=== PATIENT | female | born 1960 ===

== ENCOUNTER 2017-06-09 21:44 | Emergency (ER) | payer MEDICARE, OTHER ==
[2017-06-09 21:44] VITALS: BMI 27.9
[2017-06-09 21:55] VITALS: BP 111/75; PULSE 69; RESP 16; TEMP 98.4; O2SAT 97
--- NOTE | 2017-06-09 21:57 | ED PDOC ---
Upper Extremity Pain/Injury Time Seen by Provider: 06/09/17 21:56 Chief Complaint (Nursing): Upper Extremity Problem/Injury Chief Complaint (Provider): right shoulder pain History Per: Patient, Family (Patient's daughter at bedside is translating for patient) Additional Complaint(s): 56-year-old right-hand dominant female presents with pain to right shoulder status post cleaning at home and feeling a muscle strain to right shoulder region. Patient states that this injury occurred last night. She took ibuprofen yesterday and today which helped only slightly with pain. Patient denies radiation of pain. No associated chest pain, shortness of breath or dyspnea on exertion. Past Medical History Reviewed: Historical Data, Nursing Documentation, Vital Signs Vital Signs: Last Vital Signs Temp 98.4 F 06/09/17 21:52 Pulse 69 06/09/17 21:52 Resp 16 06/09/17 21:52 BP 111/75 06/09/17 21:52 Pulse Ox 97 06/09/17 21:52 - Medical History PMH: Anxiety, Arthritis, Asthma (MILD), Depression, Fibromyalgia, Migraine, Osteoporosis (OSTEOPENIA) - Surgical History Surgical History: (x 3) Other surgeries: hysterectomy - Family History Family History: States: No Known Family Hx - Living Arrangements Living Arrangements: With Family - Social History Current smoker - smoking cessation education provided: No Alcohol: None Drugs: Denies - Home Medications Home Medications: Ambulatory Orders Medication Instructions Recorded Alprazolam [Xanax] 1 tab PO BID 06/02/14 Diclofenac Sodium [Voltaren Gel] 1 .8 TP TID PRN 06/02/14 Donepezil Hydrochloride 10 mg PO DAILY 06/02/14 Escitalopram [Lexapro] 20 mg PO HS 06/02/14 Furosemide 20 mg PO DAILY 06/02/14 Gabapentin 100 mg PO DAILY 06/02/14 Ibuprofen 800 mg PO BID PRN 06/02/14 Inhaler 2 puff INH BID PRN 06/02/14 Omeprazole 40 mg PO DAILY 06/02/14 Risedronate Sodium 150 mg PO ONCE 06/02/14 Tobramycin/Dexamethasone [Tobradex 2.5 ml OP HS 06/02/14 0.1%-0.3% 2.5 ml] Ibuprofen [Motrin Tab] 800 mg PO Q4 PRN 07/27/15 Cyclobenzaprine [Cyclobenzaprine 10 mg PO TID PRN #20 tab 06/09/17 HCl] Naproxen [Naprosyn] 500 mg PO BID #20 tab 06/09/17 - Allergies Allergies/Adverse Reactions: Allergies Allergy/AdvReac Type Severity Reaction Status Date / Time acetaminophen [From Percocet] Allergy VOMITING Verified 06/09/17 21:52 oxycodone HCl [From Percocet] Allergy VOMITING Verified 06/09/17 21:52 Review of Systems ROS Statement: Except As Marked, All Systems Reviewed And Found Negative Musculoskeletal: Positive for: Other (Right shoulder pain) Physical Exam - Reviewed Nursing Documentation Reviewed: Yes Vital Signs Reviewed: Yes - Physical Exam Appears: Positive for: Well, Non-toxic, No Acute Distress Skin: Negative for: Rash Eye Exam: Positive for: Normal appearance Neck: Positive for: Normal, Painless ROM Cardiovascular/Chest: Positive for: Regular Rate, Rhythm Respiratory: Positive for: Normal Breath Sounds Extremity: Positive for: Other (Diffuse tenderness to anterior aspect of right shoulder, decreased range of motion him a strong right handgrip, normal distal sensation right upper extremity) Neurologic/Psych: Positive for: Alert, Oriented - ECG O2 Sat by Pulse Oximetry: 97 Pulse Ox Interpretation: Normal - Other Rad right shoulder x-ray X-Ray: Interpreted by Me, Viewed By Me X-Ray Interpretation: no fx, no dis Medical Decision Making Medical Decision Makin56 year old with right shoulder pain Plan: Right shoulder x-ray IM toradol PO tylenol and flexeril Patient is aware of x-ray results, all questions answered. Patient states she feels better after pain meds given in ED. Prescriptions given for Naprosyn and Flexeril. Patient was referred to orthopedist reclamation supervisor for follow up. Disposition - Clinical Impression Clinical Impression: Shoulder sprain - Patient ED Disposition Is Patient to be Admitted: No Counseled Patient/Family Regarding: Studies Performed, Diagnosis, Need For Followup, Rx Given - Disposition Referrals: Kal Warner MD [Staff Provider] - Disposition: Routine/Home Disposition Time: 22:54 Condition: STABLE Additional Instructions: Take prescription medicines as directed. Rest and avoid heavy lifting. Ice affected area. Follow-up in 2-3 days with orthopedist for any persistent symptoms. Prescriptions: Cyclobenzaprine [Cyclobenzaprine HCl] 10 mg PO TID PRN #20 tab PRN Reason: Muscle Spasm Naproxen [Naprosyn] 500 mg PO BID #20 tab Instructions: Shoulder Sprain (DC) Forms: [employer] (Romanian), [facility] ED School/Work Excuse
--- NOTE | 2017-06-10 11:39 | RAD ---
PROCEDURE: Radiographs of the Right Shoulder HISTORY: trauma COMPARISON: No prior. FINDINGS: BONES: Normal. No fracture. JOINTS: Normal. Glenohumeral and acromioclavicular joints preserved. No osteoarthritis. SOFT TISSUES: Normal. OTHER FINDINGS: None. IMPRESSION: Normal radiographs of the right shoulder.
== END 2017-06-09 23:18 | disposition home or self-care (01) ==
LOC: H.ER 21:44
DX: S43.401A Unspecified sprain of right shoulder joint, initial encounter (principal); X50.9XXA Other and unspecified overexertion or strenuous movements or postures, initial encounter; Y92.89 Other specified places as the place of occurrence of the external cause; Z88.5 Allergy status to narcotic agent; Z90.710 Acquired absence of both cervix and uterus; M79.7 Fibromyalgia
CPT/HCPCS: 73030; 96372; 99283; J1885

== ENCOUNTER 2017-08-03 15:55 | Emergency (ER) | payer MEDICARE, OTHER ==
[2017-08-03 15:55] VITALS: BMI 27.9
--- NOTE | 2017-08-03 16:38 | ED PDOC ---
HPI: Back Time Seen by Provider: 08/03/17 16:18 Chief Complaint (Nursing): Back Pain Chief Complaint (Provider): back pain, neck pain, joint pain History Per: Patient History/Exam Limitations: no limitations Current Symptoms Are (Timing): Still Present Additional Complaint(s): 56 y/o female with history of chronic neck pain, back pain and arthritis presents with exacerbation of pain 3 days. Patient denies fall or trauma. She takes Mobic 7.5 mg tablets twice a day as well as gabapentin but this is not providing adequate pain relief. Patient was unable to see her PMD today so she came to ED for further evaluation. PCP: Edmund Ortiz Past Medical History Reviewed: Historical Data, Nursing Documentation, Vital Signs Vital Signs: Last Vital Signs Temp 98.9 F 08/03/17 16:06 Pulse 81 08/03/17 16:06 Resp 16 08/03/17 16:06 BP 126/74 08/03/17 16:06 Pulse Ox 98 08/03/17 16:06 - Medical History PMH: Anxiety, Arthritis, Asthma, Depression, Fibromyalgia, Migraine, Osteoporosis (OSTEOPENIA) - Surgical History Surgical History: (x 3) Other surgeries: removal of mass from left shoulder, cataracts, cyst removal from left breast, hysterectomy - Family History Family History: States: No Known Family Hx - Living Arrangements Living Arrangements: With Family - Social History Current smoker - smoking cessation education provided: No Alcohol: None Drugs: Denies - Home Medications Home Medications: Ambulatory Orders Medication Instructions Recorded Alprazolam [Xanax] 1 tab PO BID 06/02/14 Diclofenac Sodium [Voltaren Gel] 1 .8 TP TID PRN 06/02/14 Donepezil Hydrochloride 10 mg PO DAILY 06/02/14 Escitalopram [Lexapro] 20 mg PO HS 06/02/14 Furosemide 20 mg PO DAILY 06/02/14 Gabapentin 100 mg PO DAILY 06/02/14 Ibuprofen 800 mg PO BID PRN 06/02/14 Inhaler 2 puff INH BID PRN 06/02/14 Omeprazole 40 mg PO DAILY 06/02/14 Risedronate Sodium 150 mg PO ONCE 06/02/14 Tobramycin/Dexamethasone [Tobradex 2.5 ml OP HS 06/02/14 0.1%-0.3% 2.5 ml] Ibuprofen [Motrin Tab] 800 mg PO Q4 PRN 07/27/15 Cyclobenzaprine [Cyclobenzaprine 10 mg PO TID PRN #20 tab 06/09/17 HCl] Naproxen [Naprosyn] 500 mg PO BID #20 tab 06/09/17 Cyclobenzaprine [Cyclobenzaprine 10 mg PO TID PRN #20 tab 08/03/17 HCl] predniSONE [Prednisone] 20 mg PO BID #10 tab 08/03/17 - Allergies Allergies/Adverse Reactions: Allergies Allergy/AdvReac Type Severity Reaction Status Date / Time acetaminophen [From Percocet] Allergy VOMITING Verified 08/03/17 16:05 oxycodone HCl [From Percocet] Allergy VOMITING Verified 08/03/17 16:05 Review of Systems ROS Statement: Except As Marked, All Systems Reviewed And Found Negative Constitutional: Negative for: Fever, Chills, Weakness Cardiovascular: Negative for: Chest Pain Respiratory: Negative for: Cough Gastrointestinal: Negative for: Nausea, Vomiting Genitourinary Female: Negative for: Dysuria, Incontinence Musculoskeletal: Positive for: Neck Pain, Back Pain, Other (joiint pain, chronic ) Physical Exam - Reviewed Nursing Documentation Reviewed: Yes Vital Signs Reviewed: Yes - Physical Exam Appears: Positive for: Well, Non-toxic, No Acute Distress Head Exam: Positive for: ATRAUMATIC, NORMOCEPHALIC Skin: Positive for: Normal Color Eye Exam: Positive for: Normal appearance Neck: Positive for: Normal, Pain On Movement Of Neck (With no midline tenderness or step off) Cardiovascular/Chest: Positive for: Regular Rate, Rhythm. Negative for: Murmur Respiratory: Positive for: Normal Breath Sounds. Negative for: Wheezing, Respiratory Distress Gastrointestinal/Abdominal: Positive for: Normal Exam, Soft. Negative for: Tenderness Back: Positive for: Normal Inspection, Vertebral Tenderness (lumbar). Negative for: L CVA Tenderness, R CVA Tenderness Extremity: Positive for: Normal ROM, Other (No erythema or warmth noted to joints of upper and lower extremities) Neurologic/Psych: Positive for: Alert, Oriented, Gait. Negative for: Motor/ Sensory Deficits - ECG O2 Sat by Pulse Oximetry: 98 (RA) Pulse Ox Interpretation: Normal Medical Decision Making Medical Decision Making: Initial Impression: 56 year old female with chronic pain Initial Plan: Cyclobenzaprine 10mg PO Toradol 30mg IM Tylenol 975mg PO Patient instructed to continue with Mobic and gabapentin that she takes daily. Prescriptions for Flexeril and prednisone given. Patient was strongly advised to follow-up with primary doctor for further evaluation. Scribe Attestation: Documented by Bk Freeman acting as a scribe for Isabela CASTANO. Provider Scribe Attestation: All medical record entries made by the Scribe were at my direction and personally dictated by me. I have reviewed the chart and agree that the record accurately reflects my personal performance of the history, physical exam, medical decision making, and the department course for this patient. I have also personally directed, reviewed, and agree with the discharge instructions and disposition. Disposition - Clinical Impression Clinical Impression: Chronic neck and back pain, Joint pain - Patient ED Disposition Is Patient to be Admitted: No Counseled Patient/Family Regarding: Diagnosis, Need For Followup, Rx Given - Disposition Referrals: Edmund Velasquez [Family Provider] - Disposition: Routine/Home Disposition Time: 17:26 Condition: STABLE Additional Instructions: Continue with mobic and gabapentin and take new rx meds as directed. Follow up with primary care doctor. Prescriptions: Cyclobenzaprine [Cyclobenzaprine HCl] 10 mg PO TID PRN #20 tab PRN Reason: Muscle Spasm predniSONE [Prednisone] 20 mg PO BID #10 tab Instructions: Chronic Pain (DC) Forms: [employer] (Divehi)
[2017-08-03 18:53] VITALS: BP 112/78; PULSE 87; RESP 18; TEMP 98; O2SAT 99
== END 2017-08-03 18:56 | disposition home or self-care (01) ==
LOC: H.ER 15:55
DX: M54.9 Dorsalgia, unspecified (principal); M54.2 Cervicalgia; G89.29 Other chronic pain
CPT/HCPCS: 96372; 99283; J1885

== ENCOUNTER 2018-02-24 13:26 | Emergency (ER) | payer MEDICARE, OTHER ==
[2018-02-24 13:45] VITALS: RESP 16; TEMP 98.3
[2018-02-24 13:47] VITALS: BMI 28.3
--- NOTE | 2018-02-24 14:10 | ED PDOC ---
HPI: General Adult Time Seen by Provider: 02/24/18 13:50 Chief Complaint (Nursing): Headache Chief Complaint (Provider): Headache History Per: Patient History/Exam Limitations: no limitations Onset/Duration Of Symptoms: Hrs (7x hours) Current Symptoms Are (Timing): Still Present Severity: Moderate Additional Complaint(s): 57 year old female with a past medical history of fibromyalgia, hypertension, and osteoarthritis presents to the ED for complaints of a left sided headache, accompanied by left sided facial pain, and left arm pain that started 7x hours prior to arrival. Patient reports that after the onset of pain, she got up to go to the bathroom and fell to the ground due to the pain. Patient reports having mild swelling to the left knee, and pain and swelling to both calves, with more swelling to the right calf (after the fall). Patient reports taking meloxicam today 5.5x hours prior to arrival. PMD: None provided. Past Medical History Reviewed: Historical Data, Nursing Documentation, Vital Signs Vital Signs: Last Vital Signs Temp 98.3 F 02/24/18 13:44 Pulse 63 02/24/18 13:44 Resp 16 02/24/18 13:44 BP 162/84 H 02/24/18 13:44 Pulse Ox 97 02/24/18 13:44 CARLOS Report Viewed: Yes - Medical History PMH: Anxiety, Arthritis, Asthma, Depression, Fibromyalgia, Fractures (FOREHEAD AND BRIDGE OF NOSE.), HTN, Migraine, Osteoporosis (OSTEOPENIA) Denies: Chronic Kidney Disease - Surgical History Surgical History: (x 3) - Family History Family History: States: No Known Family Hx - Social History Current smoker - smoking cessation education provided: No Alcohol: None Drugs: Denies - Home Medications Home Medications: Ambulatory Orders Medication Instructions Recorded Alprazolam [Xanax] 1 tab PO BID 06/02/14 Diclofenac Sodium [Voltaren Gel] 1 .8 TP TID PRN 06/02/14 Donepezil Hydrochloride 10 mg PO DAILY 06/02/14 Escitalopram [Lexapro] 20 mg PO HS 06/02/14 Furosemide 20 mg PO DAILY 06/02/14 Gabapentin 100 mg PO DAILY 06/02/14 Ibuprofen 800 mg PO BID PRN 06/02/14 Inhaler 2 puff INH BID PRN 06/02/14 Omeprazole 40 mg PO DAILY 06/02/14 Risedronate Sodium 150 mg PO ONCE 06/02/14 Tobramycin/Dexamethasone [Tobradex 2.5 ml OP HS 06/02/14 0.1%-0.3% 2.5 ml] Ibuprofen [Motrin Tab] 800 mg PO Q4 PRN 07/27/15 Cyclobenzaprine [Cyclobenzaprine 10 mg PO TID PRN #20 tab 06/09/17 HCl] Naproxen [Naprosyn] 500 mg PO BID #20 tab 06/09/17 Cyclobenzaprine [Cyclobenzaprine 10 mg PO TID PRN #20 tab 08/03/17 HCl] predniSONE [Prednisone] 20 mg PO BID #10 tab 08/03/17 - Allergies Allergies/Adverse Reactions: Allergies Allergy/AdvReac Type Severity Reaction Status Date / Time acetaminophen [From Percocet] Allergy VOMITING Verified 08/03/17 16:05 oxycodone HCl [From Percocet] Allergy VOMITING Verified 08/03/17 16:05 Review of Systems ROS Statement: Except As Marked, All Systems Reviewed And Found Negative Musculoskeletal: Positive for: Arm Pain (left arm pain), Other (mild left knee swelling, pain and swelling in bilateral calves (more swelling to right calf) st atus post fall) Neurological: Positive for: Headache (leftsided headache and facial pain) Physical Exam - Reviewed Nursing Documentation Reviewed: Yes Vital Signs Reviewed: Yes - Physical Exam Appears: Positive for: Well, Non-toxic, No Acute Distress Head Exam: Positive for: ATRAUMATIC, NORMOCEPHALIC Skin: Positive for: Normal Color, Warm, Dry Cardiovascular/Chest: Positive for: Regular Rate, Rhythm Respiratory: Positive for: Normal Breath Sounds Extremity: Positive for: Tenderness (tenderness to palpation of left arm) Neurologic/Psych: Positive for: Alert, Oriented (3x), Other (rapid alternating movements. Right hand normal, but difficulty with left hand) - Laboratory Results Result Diagrams: 02/24/18 14:30 02/24/18 14:30 - ECG ECG Rhythm: Positive for: Sinus Bradycardia (with a Q wave in lead 3) Rate: 55 O2 Sat by Pulse Oximetry: 97 (RA) Pulse Ox Interpretation: Normal - Radiology X-Ray: Viewed By Me, Read By Radiologist (see MDM note) - CT Scan/US CT head w/o contrast Other Rad Studies (CT/US): Read By Radiologist, Radiology Report Reviewed (see MDM note) US duplex LE Other Rad Studies (CT/US): Read By Radiologist, Radiology Report Reviewed (see MDM note) Medical Decision Making Medical Decision Makin:50 Initial impression: 57 year old female with a headache, facial pain, and arm pain prior to fall, and multiple injuries status post fall. Initial plan: * CT head w/o contrast * US duplex lower extrm vein bilat * XRay chest 2 views * XRay knee left 3 views * CMP * magnesium * troponin I * CBC with diff * IV NS 1,000 ml IV 500 mls/hr * toradol 15 mg IVP * reevaluation 15:52 CT head read and reviewed by radiologist FINDINGS: HEMORRHAGE: No acute parenchymal, subarachnoid or extra-axial hemorrhage. BRAIN: Suspect minimal chronic periventricular white matter ischemic changes.. Mild age-appropriate volume loss. VENTRICLES: No obstructive hydrocephalus. CALVARIUM: Calvarium intact PARANASAL SINUSES: Mucosal thickening noted within at least 1 right-sided ethmoid air cell as well as the right chamber sphenoid sinus. Small focal area polypoid like mucosal thickening with anterior wall left maxillary antra. MASTOID AIR CELLS: Unremarkable as visualized. No inflammatory changes. OTHER FINDINGS: Changes of bilateral cataract surgery. Questionable mild bilateral exophthalmos. Clinical correlation with ophthalmologic examination.. Apparent old fracture deformity left lamina papyracea through which a small amount of orbital fat extends. IMPRESSION: No evidence of acute intracranial hemorrhage. Suspect minor chronic periventricular white matter ischemic changes. Mild age-appropriate volume loss. 16:18 US duplex lower extrm vein bilat read and reviewed by radiologist FINDINGS: COMMON FEMORAL VEIN: Right CFV: Unremarkable. Left CFV: Unremarkable. SUPERFICIAL FEMORAL VEIN: Right SFV: Unremarkable. Left SFV: Unremarkable. POPLITEAL VEIN: Right Popliteal: Unremarkable. Left Popliteal: Unremarkable. POSTERIOR TIBIAL VEIN: Right PTV: Unremarkable. Left PTV: Unremarkable. OTHER FINDINGS: None. IMPRESSION: No evidence of deep venous thrombosis. 16:20 Xray chest read and reviewed by me within normal limits XRay knee left read and reviewed by me Degenerative joint disease Scribe Attestation: Documented by Kimmie Naylor, acting as a scribe for Itzel Luna PA-C. Provider Scribe Attestation: All medical record entries made by the Scribe were at my direction and personally dictated by me. I have reviewed the chart and agree that the record accurately reflects my personal performance of the history, physical exam, medical decision making, and the department course for this patient. I have also personally directed, reviewed, and agree with the discharge instructions and disposition. Disposition - Clinical Impression Clinical Impression: Headache - Patient ED Disposition Is Patient to be Admitted: No - Disposition Referrals: Joaquin Chavez MD [Staff Provider] - Disposition: Routine/Home Disposition Time: 16:39 Condition: FAIR Instructions: Headache, Adult
[2018-02-24] MEDS: Sodium Chloride 0.9% 1,000 ML IV STA (14:30)
[2018-02-24 15:08] LABS: ALB/GLOB RATIO 1.2 (1.0-2.1); ALBUMIN 4.2 g/dL (3.5-5.0); ALT/SGPT 48 U/L (9-52); AST/SGOT 39 U/L (14-36); BLOOD UREA NITROGEN 17 mg/dl (7-17); CALCIUM 9.3 mg/dL (8.4-10.2); GFR NON-AFRICAN AMERICAN > 60
[2018-02-24 15:13] LABS: BASO % 0.7 % (0.0-2.0); EOS # 0.2 K/uL (0.0-0.7); EOS % 2.4 % (0.0-4.0); HEMOGLOBIN 13.3 g/dL (12.0-16.0); LYMPH # 2.9 K/uL (1.0-4.3); LYMPH % 44.5 % (20.0-40.0); MEAN CELL VOLUME 93.7 fl (81.0-99.0); MEAN CORPUSCULAR HEMOGLOBIN 31.5 pg (27.0-31.0); MEAN CORPUSCULAR HGB CONC 33.7 g/dL (33.0-37.0); MEAN PLATELET VOLUME 8.8 fl (7.2-11.7); MONO # 0.5 K/uL (0.0-0.8); MONO % 7.7 % (0.0-10.0); NEUT % 44.7 % (50.0-75.0); NRBC % 0.1 % (0.0-0.0); RBC 4.23 Mil/uL (3.80-5.20); RED CELL DISTRIBUTION WIDTH 12.2 % (11.5-14.5); WHITE BLOOD COUNT 6.6 K/uL (4.8-10.8)
--- NOTE | 2018-02-24 15:55 | CT ---
Date of service: 02/24/2018 PROCEDURE: CT HEAD WITHOUT CONTRAST. HISTORY: HEADACHE COMPARISON: The the the TECHNIQUE: Axial computed tomography images were obtained through the head/brain without intravenous contrast. Radiation dose: Total exam DLP = 772.2 mGy-cm. This CT exam was performed using one or more of the following dose reduction techniques: Automated exposure control, adjustment of the mA and/or kV according to patient size, and/or use of iterative reconstruction technique. FINDINGS: HEMORRHAGE: No acute parenchymal, subarachnoid or extra-axial hemorrhage. BRAIN: Suspect minimal chronic periventricular white matter ischemic changes.. Mild age-appropriate volume loss. VENTRICLES: No obstructive hydrocephalus. CALVARIUM: Calvarium intact PARANASAL SINUSES: Mucosal thickening noted within at least 1 right-sided ethmoid air cell as well as the right chamber sphenoid sinus. Small focal area polypoid like mucosal thickening with anterior wall left maxillary antra. MASTOID AIR CELLS: Unremarkable as visualized. No inflammatory changes. OTHER FINDINGS: Changes of bilateral cataract surgery. Questionable mild bilateral exophthalmos. Clinical correlation with ophthalmologic examination.. Apparent old fracture deformity left lamina papyracea through which a small amount of orbital fat extends. IMPRESSION: No evidence of acute intracranial hemorrhage. Suspect minor chronic periventricular white matter ischemic changes. Mild age-appropriate volume loss. See above discussion for additional details and findings.
--- NOTE | 2018-02-24 16:22 | US ---
Date of service: 02/24/2018 PROCEDURE: Bilateral lower extremity venous duplex Doppler. HISTORY: R/O DVT COMPARISON: None available. TECHNIQUE: Bilateral common femoral, superficial femoral, popliteal and posterior tibial veins were evaluated. Flow was assessed with color Doppler, compressibility, assessment of phasic flow and augmentation response. FINDINGS: COMMON FEMORAL VEIN: Right CFV: Unremarkable. Left CFV: Unremarkable. SUPERFICIAL FEMORAL VEIN: Right SFV: Unremarkable. Left SFV: Unremarkable. POPLITEAL VEIN: Right Popliteal: Unremarkable. Left Popliteal: Unremarkable. POSTERIOR TIBIAL VEIN: Right PTV: Unremarkable. Left PTV: Unremarkable. OTHER FINDINGS: None. IMPRESSION: No evidence of deep venous thrombosis.
--- NOTE | 2018-02-24 17:05 | RAD ---
Date of service: Comparison made with radiographs of the left knee dated 04/01/2009. 02/24/2018 PROCEDURE: Left Knee Radiographs. HISTORY: Pain. COMPARISON: None. FINDINGS: BONES: No evidence of acute displaced fracture nor dislocation.. JOINTS: Minor osteophyte formation seen arising from the medial tibial plateau. Slight spurring tibial spines. Tiny posterior patellar osteophytes.. JOINT EFFUSION: Tiny suprapatellar joint effusion OTHER FINDINGS: None. IMPRESSION: No definitive radiographic evidence of acute displaced fracture nor dislocation. Small suprapatellar joint effusion. Mild DJD.
--- NOTE | 2018-02-24 17:07 | RAD ---
Date of service: 02/24/2018 HISTORY: Routine COMPARISON: No prior. TECHNIQUE: Chest PA and lateral FINDINGS: LUNGS: No active pulmonary disease. PLEURA: No significant pleural effusion identified. No pneumothorax apparent. CARDIOVASCULAR: No significant aortic atherosclerotic calcification present. Normal cardiac size. No pulmonary vascular congestion. OSSEOUS STRUCTURES: No significant abnormalities. VISUALIZED UPPER ABDOMEN: Normal. OTHER FINDINGS: None. IMPRESSION: No active disease.
[2018-02-24 17:15] VITALS: BP 156/88; PULSE 61; O2SAT 100
--- NOTE | 2018-02-24 20:39 | CARD ---
APPROVED REPORT Date of service: 02/24/2018 EKG Measurement Heart [id number] <Conclusion> Sinus bradycardia Normal Electrocardiogram
== END 2018-02-24 17:15 | disposition home or self-care (01) ==
LOC: H.ER 13:26
DX: R51 Headache (principal); M25.562 Pain in left knee
CPT/HCPCS: 70450; 71046; 73562; 80053; 83735; 84484; 85025; 93005; 93970; 96374; 99285; J1885; J7030

== ENCOUNTER 2018-05-10 15:02 | Observation (INO) | payer MEDICARE, OTHER ==
--- NOTE | 2018-05-10 15:35 | ED PDOC ---
HPI:STROKE - Time Time: 15:30 - Historian Historian: Patient - Chief Complaint Chief Complaint: Numbness - Onset Date: 05/10/18 Time: 03:00 Onset: Hours - Timing Timing: Currently Symptomatic - Notes: Notes:: 57 year old female with a past medical history of osteoarthritis, hypertension, and fibromyalgia who is presenting to the ED for evaluation of left sided facial numbness, pain behind ear associated with headache, and bilateral shoulder pain onset around 3 am this morning. Patient states that she went to bed at midnight with a normal state of health and admits that she was able to ambulate to the ED without difficulty. She denies any chest pain or shortness of breath. PMD: Edmund Velasquez NIHSS Stroke Scale - Date/Time Evaluation Performed Time Performed: 15:34 When Was NIHSS Performed: Code Stroke - How Severe is the Stroke Level of Consciousness: 0=Alert LOC to Questions: 0=Both comments correct LOC to commands: 0=Obeys both correctly Best Gaze: 0=Normal Visual: 0=No visual loss Facial: 1=Minor asymmetry Motor Arm - Left: 1=Drift noted before 10 sec Motor Arm - Right: 0=No drift Motor Leg - Left: 1=Drift before 5 sec Motor Leg - Right: 0=No drift Limb Ataxia: 0=Absent Sensory: 1=Mild to moderate loss Best Language: 0=No aphasia Dysarthia: 0=Normal articulation Extinction & Inattention (Neglect): 0=Normal, no object Score: 4 rTPA Inclusion/Exclusion - Refusal of Treatment Patient Refused Treatment: No - Inclusion Criteria for Altepase Patient is 18 years or Older: Yes The Clinical Diagnosis of Ischemic Stroke That is Causing a Potentially Disabling Neurological Deficit: No Time of Onset is Well Established to be Less Than 270 Minute Before Treatment Would Begin: No Risk/Benefit Discussed With Patient/Family Member Present: No Past Medical History Reviewed: Historical Data, Nursing Documentation, Vital Signs Vital Signs: Last Vital Signs Temp 98.4 F 05/10/18 15:05 Pulse 81 05/10/18 15:05 Resp 16 05/10/18 15:05 BP 120/70 05/10/18 15:08 Pulse Ox 97 05/10/18 15:05 - Medical History PMH: Anxiety, Arthritis, Asthma, Depression, Fibromyalgia, Fractures (FOREHEAD AND BRIDGE OF NOSE.), HTN, Migraine, Osteoporosis (OSTEOPENIA) Denies: Chronic Kidney Disease - Surgical History Surgical History: (x 3) - Family History Family History: States: Unknown Family Hx - Social History Current smoker - smoking cessation education provided: No Alcohol: None Drugs: Denies - Home Medications Home Medications: Ambulatory Orders Medication Instructions Recorded Ergocalciferol (Vitamin D2) 50,000 unit PO MO 05/10/18 [Vitamin D2] Escitalopram [Lexapro] 20 mg PO DAILY 05/10/18 Furosemide [Lasix] 20 mg PO DAILY 05/10/18 Gabapentin [Neurontin] 300 mg PO Q12 05/10/18 Losartan [Cozaar] 25 mg PO DAILY 05/10/18 Meloxicam [Mobic] 7.5 mg PO Q12 PRN 05/10/18 Memantine [Namenda] 10 mg PO Q12 05/10/18 Rosuvastatin Calcium [Crestor] 10 mg PO DAILY 05/10/18 - Allergies Allergies/Adverse Reactions: Allergies Allergy/AdvReac Type Severity Reaction Status Date / Time acetaminophen [From Percocet] Allergy VOMITING Verified 05/10/18 15:04 oxycodone HCl [From Percocet] Allergy VOMITING Verified 05/10/18 15:04 Review of Systems ROS Statement: Except As Marked, All Systems Reviewed And Found Negative ENT: Positive for: Other (pain behind ear) Cardiovascular: Negative for: Chest Pain Respiratory: Negative for: Shortness of Breath Musculoskeletal: Positive for: Shoulder Pain Neurological: Positive for: Numbness (facial numbness), Headache Physical Exam - Reviewed Nursing Documentation Reviewed: Yes Vital Signs Reviewed: Yes - Physical Exam Appears: Positive for: Non-toxic, No Acute Distress Head Exam: Positive for: ATRAUMATIC, NORMAL INSPECTION, NORMOCEPHALIC Skin: Positive for: Normal Color, Warm, DRY Eye Exam: Positive for: EOMI, Normal appearance, PERRL ENT: Positive for: Normal ENT Inspection Neck: Positive for: Normal, Painless ROM, Supple Cardiovascular/Chest: Positive for: Regular Rate, Rhythm. Negative for: Murmur Respiratory: Positive for: Normal Breath Sounds. Negative for: Respiratory Distress Gastrointestinal/Abdominal: Positive for: Normal Exam, Soft. Negative for: Tenderness Back: Positive for: Normal Inspection. Negative for: L CVA Tenderness, R CVA Tenderness, Vertebral Tenderness Extremity: Positive for: Normal ROM. Negative for: Deformity, Swelling Neurological/Psych: Positive for: Awake, Alert, Normal Tone, Oriented, Facial Droop (mild left sided ), Other (pronator drift left upper extremity and left lower extremity ) - Laboratory Results Result Diagrams: 05/11/18 05:30 05/11/18 05:30 - ECG O2 Sat by Pulse Oximetry: 97 (RA) Pulse Ox Interpretation: Normal - Critical Care Total Time (In Min): 45 Medical Decision Making Medical Decision Making: Time: 15:40 Plan: Stroke workup --Blood Type and Screen --CT Angio head --CT Head --EKG --CMP --Hemoglobin --Lipid Panel --Troponin --CBC --Coags --Chest X-Ray --Glucose, POC --IV Fluids 15:[address] Irwin, agrees with CTA in addition to CT, will call back with results. Accession No. : [id number] Patient Name / ID : DANAE CROW / [id number] Exam Date : 05/10/2018 15:23:01 ( Approved ) Study Comment : Sex / Age : F / 57Y Creator : Hector Lawton MD Dictator : Hector Lawton MD Physician Gynecologist : Airplane Dispatch Clerk : Hector Lawton MD Approver2 : Report Date : 05/10/2018 18:14:48 My Comment : Date of service: 05/10/2018 HISTORY: Code Stroke COMPARISON: 02/24/2018 FINDINGS: LUNGS: No active pulmonary disease. PLEURA: No significant pleural effusion identified, no pneumothorax apparent. CARDIOVASCULAR: No atherosclerotic calcification present No radiographic findings to suggest acute or significant cardiovascular disease. OSSEOUS STRUCTURES: No significant abnormalities. VISUALIZED UPPER ABDOMEN: Normal. OTHER FINDINGS: None. IMPRESSION: No active disease. No significant interval change compared to the prior examinat ion(s). Accession No. : [id number] Patient Name / ID : DANAE CROW / [id number] Exam Date : 05/10/2018 16:22:21 ( Approved ) Study Comment : Sex / Age : F / 57Y Creator : Miguel Hill MD Dictator : Miguel Hill MD Physician Gynecologist : Airplane Dispatch Clerk : Miguel Hill MD Approver2 : Report Date : 05/10/2018 16:36:43 My Comment : Date of service: 05/10/2018 PROCEDURE: CT HEAD WITHOUT CONTRAST. HISTORY: L sided weakness COMPARISON: Unenhanced head CT 02/24/2018. TECHNIQUE: Axial computed tomography images were obtained through the head/brain without intravenous contrast. Radiation dose: Total exam DLP = 766.91 mGy-cm. This CT exam was performed using one or more of the following dose reduction techniques: Automated exposure control, adjustment of the mA and/or kV according to patient size, and/or use of iterative reconstruction technique. FINDINGS: HEMORRHAGE: No intracranial hemorrhage. BRAIN: Normal mcintyre-white matter differentiation and density are appreciated throughout the cerebrum and cerebellum with the brainstem appearing unremarkable as well. There is no mass effect. There is no suspicious extra-axial fluid collection and the midline brain anatomy appears diffusely unremarkable. VENTRICLES: Unremarkable. No hydrocephalus. CALVARIUM: Unremarkable. PARANASAL SINUSES: Unremarkable as visualized. No significant inflammatory changes. MASTOID AIR CELLS: Unremarkable as visualized. No inflammatory changes. OTHER FINDINGS: None. IMPRESSION: Stable unremarkable unenhanced head CT as compared prior CT 02/24/2018. Accession No. : [id number] Patient Name / ID : DANAE CROW / [id number] Exam Date : 05/10/2018 16:27:51 ( Approved ) Study Comment : Sex / Age : F / 3Y Creator : Miguel Hill MD Dictator : Miguel Hill MD Physician Gynecologist : Airplane Dispatch Clerk : Miguel Hill MD Approver2 : Report Date : 05/10/2018 16:56:31 My Comment : Date of service: 05/10/2018 PROCEDURE: CT Angiography of the Brain. HISTORY: L sided weakness COMPARISON: None available. TECHNIQUE: CT angiography of the head was performed following intravenous contrast administration. Coronal and sagittal maximum intensity projection reformatted images were generated. Contrast Dose: Visipaque 320, 90 cc Radiation dose: Total exam DLP = 1185.78 mGy-cm. This CT exam was performed using one or more of the following dose reduction techniques: Automated exposure control, adjustment of the mA and/or kV according to patient size, and/or use of iterative reconstruction technique. FINDINGS: INTERNAL CEREBRAL ARTERIES: Unremarkable. The skull base, petrous, cavernous and supraclinoid segments are bilaterally widely patent. ANTERIOR CEREBRAL ARTERIES: Unremarkable. A1 and A2 segments are widely patent. Smaller distal branches unremarkable, as visualized. MIDDLE CEREBRAL ARTERIES: Unremarkable. M1 and M2 segments are widely patent. Perisylvian branches grossly symmetric. POSTERIOR CIRCULATION: Basilar Artery: Unremarkable. Distal Vertebral Arteries: Unremarkable. Posterior Cerebral Arteries: Unremarkable. Posterior Inferior Cerebellar Arteries: Unremarkable. ANEURYSM/ VASCULAR MALFORMATIONS: None. OTHER FINDINGS: None. IMPRESSION: Unremarkable CT Angiography of the Brain. 17:[address] Irwin, ASA, permissive hypertension, statin. Disposition - Clinical Impression Clinical Impression: CVA (cerebral vascular accident) - Patient ED Disposition Is Patient to be Admitted: Yes - Disposition Disposition Time: 17:30 Condition: STABLE - Pt Status Changed To: Hospital Disposition Of: Inpatient - Admit Certification Admit to Inpatient:: After my assessment, the patient will require hospitalization for at least two midnights. This is because of the severity of symptoms shown, intensity of services needed, and/or the medical risk in this patient being treated as an outpatient. - POA Present On Arrival: None
[2018-05-10] MEDS: Sodium Chloride 0.9% 1,000 ML IV SCH (16:06)
[2018-05-10 16:15] LABS: BASO # 0.1 K/uL (0.0-0.2); BASO % 0.9 % (0.0-2.0); EOS # 0.1 K/uL (0.0-0.7); EOS % 2.1 % (0.0-4.0); HEMOGLOBIN 13.4 g/dL (12.0-16.0); LYMPH # 2.2 K/uL (1.0-4.3); LYMPH % 37.2 % (20.0-40.0); MEAN CELL VOLUME 93.7 fl (81.0-99.0); MEAN CORPUSCULAR HEMOGLOBIN 31.4 pg (27.0-31.0); MEAN CORPUSCULAR HGB CONC 33.5 g/dL (33.0-37.0); MEAN PLATELET VOLUME 8.9 fl (7.2-11.7); MONO # 0.3 K/uL (0.0-0.8); MONO % 5.8 % (0.0-10.0); NEUT # 3.2 K/uL (1.8-7.0); NRBC % 0.1 % (0.0-0.0); RBC 4.28 Mil/uL (3.80-5.20); RED CELL DISTRIBUTION WIDTH 12.7 % (11.5-14.5)
[2018-05-10 16:22] LABS: ALB/GLOB RATIO 1.2 (1.0-2.1); ALBUMIN 4.2 g/dL (3.5-5.0); ALT/SGPT 20 U/L (9-52); AST/SGOT 26 U/L (14-36); BLOOD UREA NITROGEN 24 mg/dl (7-17); CALCIUM 9.4 mg/dL (8.4-10.2); GFR NON-AFRICAN AMERICAN > 60; HDL CHOLESTEROL 49 MG/DL (30-70)
[2018-05-10] MEDS ORDERED: Sodium Chloride 0.9% 50 ML IV ONE (16:25)
[2018-05-10] MEDS ORDERED: Iodixanol 320 MG/ML 100 ML BOTTLE IV ONE (16:25)
[2018-05-10 16:29] LABS: INR 1.1; PROTHROMBIN TIME 12.1 Seconds (9.8-13.1)
[2018-05-10 16:32] LABS: PARTIAL THROMBOPLASTIN TIME 36.3 Seconds (25.6-37.1)
[2018-05-10 16:33] LABS: LDL CHOLESTEROL 77 mg/dL (0-129)
--- NOTE | 2018-05-10 16:40 | CT ---
Date of service: 05/10/2018 PROCEDURE: CT HEAD WITHOUT CONTRAST. HISTORY: L sided weakness COMPARISON: Unenhanced head CT 02/24/2018. TECHNIQUE: Axial computed tomography images were obtained through the head/brain without intravenous contrast. Radiation dose: Total exam DLP = 766.91 mGy-cm. This CT exam was performed using one or more of the following dose reduction techniques: Automated exposure control, adjustment of the mA and/or kV according to patient size, and/or use of iterative reconstruction technique. FINDINGS: HEMORRHAGE: No intracranial hemorrhage. BRAIN: Normal mcintyre-white matter differentiation and density are appreciated throughout the cerebrum and cerebellum with the brainstem appearing unremarkable as well. There is no mass effect. There is no suspicious extra-axial fluid collection and the midline brain anatomy appears diffusely unremarkable. VENTRICLES: Unremarkable. No hydrocephalus. CALVARIUM: Unremarkable. PARANASAL SINUSES: Unremarkable as visualized. No significant inflammatory changes. MASTOID AIR CELLS: Unremarkable as visualized. No inflammatory changes. OTHER FINDINGS: None. IMPRESSION: Stable unremarkable unenhanced head CT as compared prior CT 02/24/2018.
--- NOTE | 2018-05-10 17:00 | CT ---
Date of service: 05/10/2018 PROCEDURE: CT Angiography of the Brain. HISTORY: L sided weakness COMPARISON: None available. TECHNIQUE: CT angiography of the head was performed following intravenous contrast administration. Coronal and sagittal maximum intensity projection reformatted images were generated. Contrast Dose: Visipaque 320, 90 cc Radiation dose: Total exam DLP = 1185.78 mGy-cm. This CT exam was performed using one or more of the following dose reduction techniques: Automated exposure control, adjustment of the mA and/or kV according to patient size, and/or use of iterative reconstruction technique. FINDINGS: INTERNAL CEREBRAL ARTERIES: Unremarkable. The skull base, petrous, cavernous and supraclinoid segments are bilaterally widely patent. ANTERIOR CEREBRAL ARTERIES: Unremarkable. A1 and A2 segments are widely patent. Smaller distal branches unremarkable, as visualized. MIDDLE CEREBRAL ARTERIES: Unremarkable. M1 and M2 segments are widely patent. Perisylvian branches grossly symmetric. POSTERIOR CIRCULATION: Basilar Artery: Unremarkable. Distal Vertebral Arteries: Unremarkable. Posterior Cerebral Arteries: Unremarkable. Posterior Inferior Cerebellar Arteries: Unremarkable. ANEURYSM/ VASCULAR MALFORMATIONS: None. OTHER FINDINGS: None. IMPRESSION: Unremarkable CT Angiography of the Brain.
--- NOTE | 2018-05-10 18:18 | RAD ---
Date of service: 05/10/2018 HISTORY: Code Stroke COMPARISON: 02/24/2018 FINDINGS: LUNGS: No active pulmonary disease. PLEURA: No significant pleural effusion identified, no pneumothorax apparent. CARDIOVASCULAR: No atherosclerotic calcification present No radiographic findings to suggest acute or significant cardiovascular disease. OSSEOUS STRUCTURES: No significant abnormalities. VISUALIZED UPPER ABDOMEN: Normal. OTHER FINDINGS: None. IMPRESSION: No active disease. No significant interval change compared to the prior examination(s).
--- NOTE | 2018-05-10 18:24 | CP.PCM.HP ---
<Sultan Mita - Last Filed: 05/10/18 19:22> History of Present Illness - History of Present Illness History of Present Illness: CC: Left sided weakness, and L facial numbness and drooling HPI: 57 year old Female with PMHx hypertension, migraine headache, fibromyalgia, arthritis and asthma presents to [facility] ED for evaluation of left sided facial numbness,drooling, and posterior headache that started at 3 am this morning. Also reports some weakness of left upper and lower extremity. Stat es she went to bed at 12 midnight with some headache and had no facial numbness or drooling before going to bed. Patient reports her headache was exacerbated by light and noise. Reports she was diagnosed with migraine headache recently by PMD but never seen a neurologist. Patient reports history similar headache and left sided facial numbness in 01/[address] was neg for CVA. Today, in the ED, patient's NIHSS 4, code stroke was activated and neurologist Dr. Irwin was consulted. Head CT and CTA of brain were negative for acute stroke. Patient is admitted for evaluation of acute stroke. ROS: All 12 systems reviewed and negative except as mentioned in HPI PMD: Dr. Velasquez PMHx: hypertension, migraine headache, Left eye blindness, fibromyalgia, arthritis and asthma Surgical hx: x 3, left eye and left shoulder Social hx: Denies smoking cigarettes, drinking EtOH or using drugs Family hx: Denies any family hx stroke or CAD Allergies: Percocet (SE): vomiting Medications: reviewed Present on Admission - Present on Admission Any Indicators Present on Admission: No Review of Systems - Review of Systems Review of Systems: All 12 systems reviewed and negative except as mentioned in HPI Past Patient History - Past Medical History & Family History Past Medical History?: Yes - Past Social History Alcohol: None Drugs: Denies - CARDIAC Hx Hypertension: Yes - PULMONARY Hx Asthma: Yes - NEUROLOGICAL Hx Migraine: Yes - HEENT Hx HEENT Problems: No - RENAL Hx Chronic Kidney Disease: No - ENDOCRINE/METABOLIC Hx Endocrine Disorders: No - HEMATOLOGICAL/ONCOLOGICAL Hx Blood Disorders: No - INTEGUMENTARY Hx Dermatological Problems: No - MUSCULOSKELETAL/RHEUMATOLOGICAL Hx Arthritis: Yes Hx Fractures: Yes (FOREHEAD AND BRIDGE OF NOSE.) Hx Osteoporosis: Yes (OSTEOPENIA) - GASTROINTESTINAL Hx Gastrointestinal Disorders: Yes Other/Comment: HEARTBURN - GENITOURINARY/GYNECOLOGICAL Hx Genitourinary Disorders: No - PSYCHIATRIC Hx Anxiety: Yes Hx Depression: Yes - SURGICAL HISTORY Hx Surgeries: Yes Hx Breast Biopsy: Yes (BILATERAL) Hx Cataract Extraction: Yes (left) Hx Hysterectomy: Yes Hx Orthopedic Surgery: Yes (LEFT SHOULDER) - ANESTHESIA Hx Anesthesia: Yes Hx Anesthesia Reactions: No Hx Malignant Hyperthermia: No Meds Home Medications: Home Medication List Medication Instructions Recorded Confirmed Type Aspirin [Ecotrin] 81 mg PO DAILY tabec 05/11/18 Rx Prednisone 60 mg PO DAILY #40 tab.ds.pk 05/11/18 Rx Valacyclovir HCl [Valacyclovir] 1,000 mg PO Q12H 10 Days #20 tablet 05/11/18 Rx Allergies/Adverse Reactions: Allergies Allergy/AdvReac Type Severity Reaction Status Date / Time acetaminophen [From Percocet] Allergy VOMITING Verified 05/10/18 15:04 oxycodone HCl [From Percocet] Allergy VOMITING Verified 05/10/18 15:04 Physical Exam - Constitutional Appears: No Acute Distress - Head Exam Head Exam: NORMAL INSPECTION - Eye Exam Eye Exam: Normal appearance - ENT Exam ENT Exam: Mucous Membranes Moist - Neck Exam Neck exam: Positive for: Normal Inspection - Respiratory Exam Respiratory Exam: Clear to Auscultation Bilateral, NORMAL BREATHING PATTERN. absent: Rhonchi, Wheezes - Cardiovascular Exam Cardiovascular Exam: REGULAR RHYTHM, +S1, +S2 - GI/Abdominal Exam GI & Abdominal Exam: Normal Bowel Sounds, Soft. absent: Tenderness - Extremities Exam Extremities exam: Negative for: pedal edema - Back Exam Back exam: NORMAL INSPECTION - Neurological Exam Neurological exam: Alert, Oriented x3 Additional comments: AA0 X3, clear speech, no aphasia or dysarthria noted, follows command Left sided minor facial asymmetry and diminished sensation + left motor arm drift +left leg weakness finger to nose test normal NIHSS 4 in ED - Psychiatric Exam Psychiatric exam: Anxious, Normal Affect - Skin Skin Exam: Normal Color Results - Vital Signs Recent Vital Signs: Last Vital Signs Temp 98.4 F 05/10/18 15:05 Pulse 74 05/10/18 15:31 Resp 20 05/10/18 15:31 BP 125/77 05/10/18 15:31 Pulse Ox 97 05/10/18 16:35 - Labs Result Diagrams: 05/10/18 16:00 05/10/18 16:00 Labs: Laboratory Results - last 24 hr 05/10/18 05/10/18 05/10/18 15:48 16:00 16:00 WBC 6.0 RBC 4.28 Hgb 13.4 Hct 40.1 MCV 93.7 MCH 31.4 H MCHC 33.5 RDW 12.7 Plt Count 229 MPV 8.9 Neut % (Auto) 54.0 Lymph % (Auto) 37.2 Gaston % (Auto) 5.8 Eos % (Auto) 2.1 Baso % (Auto) 0.9 Neut # (Auto) 3.2 Lymph # (Auto) 2.2 Gaston # (Auto) 0.3 Eos # (Auto) 0.1 Baso # (Auto) 0.1 PT INR APTT Sodium 142 Potassium 3.9 Chloride 107 Carbon Dioxide 23 Anion Gap 16 BUN 24 H Creatinine 0.7 Est GFR ( Amer) > 60 Est GFR (Non-Af Amer) > 60 POC Glucose (mg/dL) 110 Random Glucose 103 Calcium 9.4 Total Bilirubin 0.2 AST 26 ALT 20 Alkaline Phosphatase 94 Troponin I < 0.0120 Total Protein 7.7 Albumin 4.2 Globulin 3.4 Albumin/Globulin Ratio 1.2 Triglycerides 350 H Cholesterol 174 LDL Cholesterol Direct 77 HDL Cholesterol 49 05/10/18 16:00 WBC RBC Hgb Hct MCV MCH MCHC RDW Plt Count MPV Neut % (Auto) Lymph % (Auto) Gaston % (Auto) Eos % (Auto) Baso % (Auto) Neut # (Auto) Lymph # (Auto) Gaston # (Auto) Eos # (Auto) Baso # (Auto) PT 12.1 INR 1.1 APTT 36.3 Sodium Potassium Chloride Carbon Dioxide Anion Gap BUN Creatinine Est GFR ( Amer) Est GFR (Non-Af Amer) POC Glucose (mg/dL) Random Glucose Calcium Total Bilirubin AST ALT Alkaline Phosphatase Troponin I Total Protein Albumin Globulin Albumin/Globulin Ratio Triglycerides Cholesterol LDL Cholesterol Direct HDL Cholesterol Assessment & Plan - Assessment and Plan (Free Text) Assessment: 57 year old Female with PMHx hypertension, migraine headache, fibromyalgia, arthritis and asthma presents to [facility] ED for evaluation of left sided facial numbness,drooling, and posterior headache that started at 3 am this morning. Also reports some weakness of left upper and lower extremity. States she went to bed at 12 midnight with some headache and had no facial numbness or drooling before going to bed. Today, in the ED, patient's NIHSS 4, code stroke was activated and neurologist Dr. Irwin was consulted. Head CT and CTA of brain were negative for acute stroke. Patient is admitted for evaluation of CVA Plan: Left sided facial numbness, drooling and left sided weakness, r/o CVA vs complex migraine -Afebrile with stable vitals -NIHSS 4 in ED -Neurology consult -- Dr. Irwin -- f/u recs -Head CT: IMPRESSION: Stable unremarkable unenhanced head CT as compared prior CT 02/24/2018. -CTA brain: IMPRESSION: Unremarkable CT Angiography of the Brain. -Passed swallow screen in ED -Permissive HTN -c/w Asprin 81, atorvastatin 40 mg -ECHO -PT/OT eval -fall risk precaution -c/w NS @100 cc/hr -AM labs Hyperlipidemia -Trig. 350, TC 174, LDL 77, HLD 49 -c/w atorvastatin 40 mg po HS Hypertension -Hold bp meds for permissive HTN Asthma, mild intermittent -Asymptomatic -resume home medication DVT prophylaxis: Lovenox 40 mg sc daily Patient seen, examined and plan discussed with Dr. Frederick Fan, pgy-2 <Marissa Mack - Last Filed: 05/11/18 19:07> Results - Vital Signs Recent Vital Signs: Last Vital Signs Temp 98.4 F 05/11/18 15:49 Pulse 67 05/11/18 15:49 Resp 17 05/11/18 15:49 BP 134/78 05/11/18 15:49 Pulse Ox 97 05/11/18 15:58 - Labs Result Diagrams: 05/11/18 05:30 05/11/18 05:30 Labs: Laboratory Results - last 24 hr 05/10/18 05/11/18 05/11/18 16:00 05:30 05:30 WBC 5.3 RBC 3.79 L Hgb 12.1 Hct 35.4 MCV 93.4 MCH 32.0 H MCHC 34.3 RDW 12.7 Plt Count 219 MPV 8.9 Neut % (Auto) 37.2 L Lymph % (Auto) 50.3 H Gaston % (Auto) 8.8 Eos % (Auto) 3.1 Baso % (Auto) 0.6 Neut # (Auto) 2.0 Lymph # (Auto) 2.7 Gaston # (Auto) 0.5 Eos # (Auto) 0.2 Baso # (Auto) 0.0 Sodium 142 Potassium 4.0 Chloride 106 Carbon Dioxide 24 Anion Gap 16 BUN 15 Creatinine 0.6 L Est GFR ( Amer) > 60 Est GFR (Non-Af Amer) > 60 Random Glucose 83 Hemoglobin A1c 5.2 Calcium 9.0 Phosphorus 4.2 Magnesium 2.0 Total Bilirubin 0.4 AST 22 ALT 32 Alkaline Phosphatase 78 Total Protein 6.3 Albumin 3.3 L D Globulin 3.0 Albumin/Globulin Ratio 1.1 Vitamin B12 512 TSH 3rd Generation 0.79 Attending/Attestation - Attestation I have personally seen and examined this patient.: Yes I have fully participated in the care of the patient.: Yes I have reviewed all pertinent clinical information: Yes Notes (Text): 05/11/18 19:07 Agree with findings and plan as above.
[2018-05-10] MEDS ORDERED: Naproxen 500 MG TAB PO PRN (19:17)
[2018-05-11] MEDS: Sodium Chloride 0.9% 1,000 ML IV SCH ×2 (02:00→13:29)
[2018-05-11 04:18] VITALS: BMI 26.9
[2018-05-11 07:57] LABS: BASO % 0.6 % (0.0-2.0); EOS # 0.2 K/uL (0.0-0.7); EOS % 3.1 % (0.0-4.0); HEMOGLOBIN 12.1 g/dL (12.0-16.0); LYMPH # 2.7 K/uL (1.0-4.3); LYMPH % 50.3 % (20.0-40.0); MEAN CELL VOLUME 93.4 fl (81.0-99.0); MEAN CORPUSCULAR HGB CONC 34.3 g/dL (33.0-37.0); MEAN PLATELET VOLUME 8.9 fl (7.2-11.7); MONO # 0.5 K/uL (0.0-0.8); MONO % 8.8 % (0.0-10.0); NEUT % 37.2 % (50.0-75.0); NRBC % 0.1 % (0.0-0.0); RBC 3.79 Mil/uL (3.80-5.20); RED CELL DISTRIBUTION WIDTH 12.7 % (11.5-14.5); WHITE BLOOD COUNT 5.3 K/uL (4.8-10.8)
[2018-05-11 08:16] LABS: ALB/GLOB RATIO 1.1 (1.0-2.1); ALBUMIN 3.3 g/dL (3.5-5.0); ALT/SGPT 32 U/L (9-52); AST/SGOT 22 U/L (14-36); BLOOD UREA NITROGEN 15 mg/dl (7-17); GFR NON-AFRICAN AMERICAN > 60
[2018-05-11] MEDS ORDERED: Gadodiamide 287 MG/ML VIAL (15ML) IV ONE (08:57)
[2018-05-11] MEDS ORDERED: Enoxaparin 40 mg Syringe SC SCH (09:00)
--- NOTE | 2018-05-11 12:26 | CARD ---
APPROVED REPORT Date of service: 05/10/2018 EKG Measurement Heart [id number] <Conclusion> Normal sinus rhythm Normal ECG
--- NOTE | 2018-05-11 14:14 | CP.PCM.CON ---
History of Present Illness - History of Present Illness History of Present Illness: Neurology Consultation Note: Consult requested by Dr. Mack Mrs. Hill is a 57-year-old woman with a past medical history of hypertension, migraine headache, fibromyalgia, arthritis and asthma presents to [facility] ED for evaluation of left sided facial numbness, drooling, and posterior headache, some left side numbness that started at 3 AM yesterday. She presented to the ED and had an NIHSS of 4, but was not a candidate for IV tPA due to being outside the 4.5 hour time window. Today, MRI was done and it does not show any infarct. Review of Systems - Constitutional Constitutional: As Per HPI - EENT Eyes: absent: As Per HPI, Blind Spots, Blurred Vision, Change in Vision, Decreased Night Vision, Diplopia, Discharge, Dry Eye, Exophthalmos, Floaters, Irritation, Itchy Eyes, Loss of Peripheral Vision, Pain, Photophobia, Requires Corrective Lenses, Sees Flashes, Spots in Vision, Tunnel Vision, Other Visual Disturbances, Loss of Vision, Other Ears: absent: As Per HPI, Decreased Hearing, Ear Discharge, Ear Pain, Tinnitus, Abnormal Hearing, Disequilibrium, Dizziness, Other Nose/Mouth/Throat: absent: As Per HPI, Epistaxis, Nasal Congestion, Nasal Discharge, Nasal Obstruction, Nasal Trauma, Nose Pain, Post Nasal Drip, Sinus Pain, Sinus Pressure, Bleeding Gums, Change in Voice, Dental Pain, Dry Mouth, Dysphagia, Halitosis, Hoarsness, Lip Swelling, Mouth Lesions, Mouth Pain, Odynophagia, Sore Throat, Throat Swelling, Tongue Swelling, Facial Pain, Neck Pain, Neck Mass, Other - Cardiovascular Cardiovascular: absent: As Per HPI, Acrocyanosis, Chest Pain, Chest Pain at Rest, Chest Pain with Activity, Claudication, Diaphoresis, Dyspnea, Dyspnea on Exertion, Edema, Irregular Heart Rhythm, Pain Radiating to Arm/Neck/Jaw, Leg Edema, Leg Ulcers, Lightheadedness, Orthopnea, Palpitations, Paroxysmal Nocturnal Dyspnea, Pedal Edema, Radiating Pain, Rapid Heart Rate, Slow Heart Rate, Syncope, Other - Respiratory Respiratory: absent: As Per HPI, Cough, Dyspnea, Hemoptysis, Dyspnea on Exertion, Wheezing, Snoring, Stridor, Pain on Inspiration, Chest Congestion, Excessive Mucous Production, Change in Mucous Color, Pain with Coughing, Other - Gastrointestinal Gastrointestinal: absent: As Per HPI, Abdominal Pain, Belching, Bloating, Change in Bowel Habits, Change in Stool Character, Coffee Ground Emesis, Constipation, Cramping, Diarrhea, Dyspepsia, Dysphagia, Early Satiety, Excessive Flatus, Fecal Incontinence, Heartburn, Hematemesis, Hematochezia, Loose Stools, Melena, Nausea, Odynophagia, Temesmus, Vomiting, Other - Musculoskeletal Musculoskeletal: absent: As Per HPI, Abnormal Gait, Arthralgias, Atrophy, Back Pain, Deformity, Joint Swelling, Limited Range of Motion, Loss of Height, Muscle Cramps, Muscle Weakness, Myalgias, Neck Pain, Numbness, Radiating Pain into Limb, Stiffness, Tingling, Other - Integumentary Integumentary: absent: As Per HPI, Acne, Alopecia, Bleeding Lesions, Change in Hair, Change in Nails, Change in Pigmentation, Changing Lesions, Dry Skin, Erythema, Furuncle, Hirsutism, Lesions, New Lesions, Non-Healing Lesions, Photosensitivity, Pruritus, Rash, Skin Pain, Skin Ulcer, Sores, Striae, Swelling, Unusual Bruising, Wounds, Jaundice, Other - Neurological Neurological: As Per HPI - Psychiatric Psychiatric: absent: As Per HPI, Abnormal Sleep Pattern, Anhedonia, Anxiety, Auditory Hallucinations, Behavioral Changes, Change in Appetite, Change in Libido, Confusion, Depression, Difficulty Concentrating, Hallucinations, Homicidal Ideation, Hopelessness, Irritability, Memory Loss, Mood Swings, Panic Attacks, Paranoia, Suicidal Ideation, Visual Hallucinations, Tactile Hallucinations, Other Past Patient History - Past Medical History & Family History Past Medical History?: Yes - Past Social History Smoking Status: Never Smoked - CARDIAC Hx Hypertension: Yes - PULMONARY Hx Asthma: Yes - NEUROLOGICAL Hx Migraine: Yes - HEENT Hx HEENT Problems: No - RENAL Hx Chronic Kidney Disease: No - ENDOCRINE/METABOLIC Hx Endocrine Disorders: No - HEMATOLOGICAL/ONCOLOGICAL Hx AIDS: No Hx Human Immunodeficiency Virus (HIV): No - INTEGUMENTARY Hx Dermatological Problems: No - MUSCULOSKELETAL/RHEUMATOLOGICAL Hx Falls: Yes - GASTROINTESTINAL Hx Gastrointestinal Disorders: Yes Other/Comment: HEARTBURN - GENITOURINARY/GYNECOLOGICAL Hx Genitourinary Disorders: No - PSYCHIATRIC Hx Substance Use: No - SURGICAL HISTORY Hx Surgeries: Yes Hx Breast Biopsy: Yes (BILATERAL) Hx Cataract Extraction: Yes (left) Hx Hysterectomy: Yes Hx Orthopedic Surgery: Yes (LEFT SHOULDER) - ANESTHESIA Hx Anesthesia: Yes Hx Anesthesia Reactions: No Hx Malignant Hyperthermia: No Meds Allergies/Adverse Reactions: Allergies Allergy/AdvReac Type Severity Reaction Status Date / Time acetaminophen [From Percocet] Allergy VOMITING Verified 05/10/18 15:04 oxycodone HCl [From Percocet] Allergy VOMITING Verified 05/10/18 15:04 - Medications Medications: Current Medications Acetaminophen (Tylenol 325mg Tab) 650 mg PO Q6 PRN PRN Reason: Headache Last Admin: 05/11/18 10:52 Dose: 650 mg Aspirin (Ecotrin) 81 mg PO DAILY [facility] Last Admin: 05/11/18 10:52 Dose: 81 mg Atorvastatin Calcium (Lipitor) 40 mg PO HS [facility] Last Admin: 05/10/18 21:35 Dose: 40 mg Enoxaparin Sodium (Lovenox) 40 mg SC DAILY [facility]; Protocol Last Admin: 05/11/18 13:28 Dose: 40 mg Ergocalciferol (Drisdol 50,000 Intl Units Cap) 1 cap PO MO ANDREW Escitalopram Oxalate (Lexapro) 20 mg PO DAILY [facility] Last Admin: 05/11/18 10:51 Dose: 20 mg Gabapentin (Neurontin) 300 mg PO Q12 [facility] Last Admin: 05/11/18 10:52 Dose: 300 mg Sodium Chloride (Sodium Chloride 0.9%) 1,000 mls @ 100 mls/hr IV .Q10H [facility] Last Admin: 05/11/18 13:29 Dose: Not Given Memantine (Namenda) 10 mg PO Q12 [facility] Last Admin: 05/11/18 10:51 Dose: 10 mg Naproxen (Naproxen) 500 mg PO Q12 PRN PRN Reason: Pain, moderate (4-7) Last Admin: 05/10/18 20:43 Dose: 500 mg Ondansetron HCl (Zofran Inj) 4 mg IVP Q6 PRN PRN Reason: Nausea/Vomiting Physical Exam - Constitutional Appears: Well - Head Exam Head Exam: ATRAUMATIC, NORMAL INSPECTION, NORMOCEPHALIC - Eye Exam Eye Exam: EOMI, Normal appearance, PERRL Pupil Exam: NORMAL ACCOMODATION, PERRL - ENT Exam ENT Exam: Mucous Membranes Moist, Normal Exam - Neck Exam Neck exam: Positive for: Normal Inspection - Respiratory Exam Respiratory Exam: Clear to Auscultation Bilateral, NORMAL BREATHING PATTERN - Cardiovascular Exam Cardiovascular Exam: REGULAR RHYTHM, +S1, +S2 - GI/Abdominal Exam GI & Abdominal Exam: Normal Bowel Sounds, Soft. 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, otherwise CN 2-12 intact - Psychiatric Exam Psychiatric exam: Normal Affect, Normal Mood - Skin Skin Exam: Dry, Intact, Normal Color, Warm Results - Vital Signs Recent Vital Signs: Last Vital Signs Temp 98.2 F 05/11/18 11:46 Pulse 65 05/11/18 11:46 Resp 18 05/11/18 11:46 BP 137/81 05/11/18 11:46 Pulse Ox 98 05/11/18 11:46 - Labs Result Diagrams: 05/11/18 05:30 05/11/18 05:30 Labs: Laboratory Results - last 24 hr 05/10/18 05/10/18 05/10/18 15:48 16:00 16:00 WBC 6.0 RBC 4.28 Hgb 13.4 Hct 40.1 MCV 93.7 MCH 31.4 H MCHC 33.5 RDW 12.7 Plt Count 229 MPV 8.9 Neut % (Auto) 54.0 Lymph % (Auto) 37.2 [place] % (Auto) 5.8 Eos % (Auto) 2.1 Baso % (Auto) 0.9 Neut # (Auto) 3.2 Lymph # (Auto) 2.2 [place] # (Auto) 0.3 Eos # (Auto) 0.1 Baso # (Auto) 0.1 PT INR APTT Sodium 142 Potassium 3.9 Chloride 107 Carbon Dioxide 23 Anion Gap 16 BUN 24 H Creatinine 0.7 Est GFR ( Amer) > 60 Est GFR (Non-Af Amer) > 60 POC Glucose (mg/dL) 110 Random Glucose 103 Hemoglobin A1c Calcium 9.4 Phosphorus Magnesium Total Bilirubin 0.2 AST 26 ALT 20 Alkaline Phosphatase 94 Troponin I < 0.0120 Total Protein 7.7 Albumin 4.2 Globulin 3.4 Albumin/Globulin Ratio 1.2 Triglycerides 350 H Cholesterol 174 LDL Cholesterol Direct 77 HDL Cholesterol 49 Vitamin B12 TSH 3rd Generation Blood Type Antibody Screen BBK History Checked 05/10/18 05/10/18 05/10/18 16:00 16:00 16:00 WBC RBC Hgb Hct MCV MCH MCHC RDW Plt Count MPV Neut % (Auto) Lymph % (Auto) [place] % (Auto) Eos % (Auto) Baso % (Auto) Neut # (Auto) Lymph # (Auto) [place] # (Auto) Eos # (Auto) Baso # (Auto) PT 12.1 INR 1.1 APTT 36.3 Sodium Potassium Chloride Carbon Dioxide Anion Gap BUN Creatinine Est GFR ( Amer) Est GFR (Non-Af Amer) POC Glucose (mg/dL) Random Glucose Hemoglobin A1c 5.2 Calcium Phosphorus Magnesium Total Bilirubin AST ALT Alkaline Phosphatase Troponin I Total Protein Albumin Globulin Albumin/Globulin Ratio Triglycerides Cholesterol LDL Cholesterol Direct HDL Cholesterol Vitamin B12 TSH 3rd Generation Blood Type O POSITIVE Antibody Screen Negative BBK History Checked Patient has bt 05/11/18 05/11/18 05:30 05:30 WBC 5.3 RBC 3.79 L Hgb 12.1 Hct 35.4 MCV 93.4 MCH 32.0 H MCHC 34.3 RDW 12.7 Plt Count 219 MPV 8.9 Neut % (Auto) 37.2 L Lymph % (Auto) 50.3 H [place] % (Auto) 8.8 Eos % (Auto) 3.1 Baso % (Auto) 0.6 Neut # (Auto) 2.0 Lymph # (Auto) 2.7 [place] # (Auto) 0.5 Eos # (Auto) 0.2 Baso # (Auto) 0.0 PT INR APTT Sodium 142 Potassium 4.0 Chloride 106 Carbon Dioxide 24 Anion Gap 16 BUN 15 Creatinine 0.6 L Est GFR ( Amer) > 60 Est GFR (Non-Af Amer) > 60 POC Glucose (mg/dL) Random Glucose 83 Hemoglobin A1c Calcium 9.0 Phosphorus 4.2 Magnesium 2.0 Total Bilirubin 0.4 AST 22 ALT 32 Alkaline Phosphatase 78 Troponin I Total Protein 6.3 Albumin 3.3 L D Globulin 3.0 Albumin/Globulin Ratio 1.1 Triglycerides Cholesterol LDL Cholesterol Direct HDL Cholesterol Vitamin B12 512 TSH 3rd Generation 0.79 Blood Type Antibody Screen BBK History Checked Assessment & Plan (1) Complicated migraine Status: Acute (2) Cota's palsy Assessment and Plan: Would start prednisone 60 mg daily for 5 days, then taper off over the next 5 days. Valcyclovir 1 gram PO Q12 for 10 days. Status: Acute
--- NOTE | 2018-05-11 15:38 | MRI ---
Date of service: 05/11/2018 PROCEDURE: MRI BRAIN WITH AND WITHOUT CONTRAST HISTORY: r/o CVA COMPARISON: CT angiography and CT scan of the head yesterday TECHNIQUE: Multiplanar, multisequence MR images of the brain were obtained with and without intravenous contrast enhancement. FINDINGS: HEMORRHAGE: None DWI: No evidence of an acute or early subacute infarction. BRAIN PARENCHYMA: No mass,mass effect or edema. Mild age related cerebral atrophy is noted with a few scattered tiny subtle areas of small vessel change in the white matter tracts. No cortical effacement is seen. Cervicomedullary junction is unremarkable. No tonsillar ectopia is seen. No sellar masses are noted. ENHANCEMENT: No abnormal intracranial enhancement. VENTRICLES: Unremarkable. No hydrocephalus. CRANIUM: Unremarkable. ORBITS: Grossly unremarkable. PARANASAL SINUSES/MASTOIDS: There is a mucous retention cyst seen in the left maxillary sinus. Mild mucosal changes are seen elsewhere. VASCULAR SYSTEM: Skull base flow voids intact. OTHER FINDINGS: None . IMPRESSION: No evidence of recent infarct or intracranial hemorrhage. No evidence of mass enhancing lesion. Mild age related cerebral atrophy and probable minor microvascular small vessel changes in the white matter tracts.
[2018-05-11 15:49] VITALS: BP 134/78; PULSE 67; RESP 17; TEMP 98.4; O2SAT 97
--- NOTE | 2018-05-11 17:06 | CP.PCM.DIS ---
<Wesley Barillas - Last Filed: 05/11/18 17:28> Provider - Provider Date of Admission: 05/10/18 17:31 Attending physician: Marissa Mack DO Consults: 05/10/18 22:18 Pastoral Care Referral Routine Comment: Physician Instructions: Reason For Exam: New admission 05/11/18 08:05 Neurology Consult Routine Comment: Consulting Provider: Aurelio Irwin Consulting Physician: Aurelio Irwin Reason for Consult: CVA Time Spent in preparation of Discharge (in minutes): 38 Diagnosis - Discharge Diagnosis (1) Acute left-sided weakness Status: Acute (2) Cota's palsy Status: Acute (3) Complicated migraine Status: Acute (4) Hypertension Status: Acute (5) Hyperlipemia Status: Acute Hospital Course - Lab Results Lab Results: Most Recent Lab Values WBC 5.3 K/uL (4.8-10.8) 05/11/18 05:30 RBC 3.79 Mil/uL (3.80-5.20) L 05/11/18 05:30 Hgb 12.1 g/dL (12.0-16.0) 05/11/18 05:30 Hct 35.4 % (34.0-47.0) 05/11/18 05:30 MCV 93.4 fl (81.0-99.0) 05/11/18 05:30 MCH 32.0 pg (27.0-31.0) H 05/11/18 05:30 MCHC 34.3 g/dL (33.0-37.0) 05/11/18 05:30 RDW 12.7 % (11.5-14.5) 05/11/18 05:30 Plt Count 219 K/uL (130-400) 05/11/18 05:30 MPV 8.9 fl (7.2-11.7) 05/11/18 05:30 Neut % (Auto) 37.2 % (50.0-75.0) L 05/11/18 05:30 Lymph % (Auto) 50.3 % (20.0-40.0) H 05/11/18 05:30 [place] % (Auto) 8.8 % (0.0-10.0) 05/11/18 05:30 Eos % (Auto) 3.1 % (0.0-4.0) 05/11/18 05:30 Baso % (Auto) 0.6 % (0.0-2.0) 05/11/18 05:30 Neut # (Auto) 2.0 K/uL (1.8-7.0) 05/11/18 05:30 Lymph # (Auto) 2.7 K/uL (1.0-4.3) 05/11/18 05:30 [place] # (Auto) 0.5 K/uL (0.0-0.8) 05/11/18 05:30 Eos # (Auto) 0.2 K/uL (0.0-0.7) 05/11/18 05:30 Baso # (Auto) 0.0 K/uL (0.0-0.2) 05/11/18 05:30 PT 12.1 Seconds (9.8-13.1) 05/10/18 16:00 INR 1.1 05/10/18 16:00 APTT 36.3 Seconds (25.6-37.1) 05/10/18 16:00 Sodium 142 mmol/l (132-148) 05/11/18 05:30 Potassium 4.0 MMOL/L (3.6-5.0) 05/11/18 05:30 Chloride 106 mmol/L (98-107) 05/11/18 05:30 Carbon Dioxide 24 mmol/L (22-30) 05/11/18 05:30 Anion Gap 16 (10-20) 05/11/18 05:30 BUN 15 mg/dl (7-17) 05/11/18 05:30 Creatinine 0.6 mg/dl (0.7-1.2) L 05/11/18 05:30 Est GFR ( Amer) > 60 05/11/18 05:30 Est GFR (Non-Af Amer) > 60 05/11/18 05:30 POC Glucose (mg/dL) 110 mg/dL (65-110) 05/10/18 15:48 Random Glucose 83 mg/dL (65-105) 05/11/18 05:30 Hemoglobin A1c 5.2 % (4.2-6.5) 05/10/18 16:00 Calcium 9.0 mg/dL (8.4-10.2) 05/11/18 05:30 Phosphorus 4.2 mg/dl (2.5-4.5) 05/11/18 05:30 Magnesium 2.0 MG/DL (1.6-2.3) 05/11/18 05:30 Total Bilirubin 0.4 mg/dl (0.2-1.3) 05/11/18 05:30 AST 22 U/L (14-36) 05/11/18 05:30 ALT 32 U/L (9-52) 05/11/18 05:30 Alkaline Phosphatase 78 U/L (38-126) 05/11/18 05:30 Troponin I < 0.0120 ng/mL (0.00-0.120) 05/10/18 16:00 Total Protein 6.3 G/DL (6.3-8.2) 05/11/18 05:30 Albumin 3.3 g/dL (3.5-5.0) L D 05/11/18 05:30 Globulin 3.0 gm/dL (2.2-3.9) 05/11/18 05:30 Albumin/Globulin Ratio 1.1 (1.0-2.1) 05/11/18 05:30 Triglycerides 350 mg/DL (0-149) H 05/10/18 16:00 Cholesterol 174 mg/dL (0-199) 05/10/18 16:00 LDL Cholesterol Direct 77 mg/dL (0-129) 05/10/18 16:00 HDL Cholesterol 49 MG/DL (30-70) 05/10/18 16:00 Vitamin B12 512 pg/mL (239-931) 05/11/18 05:30 TSH 3rd Generation 0.79 mIU/ML (0.46-4.68) 05/11/18 05:30 Blood Type O POSITIVE 05/10/18 16:00 Antibody Screen Negative 05/10/18 16:00 BBK History Checked Patient has bt 05/10/18 16:00 - Hospital Course Hospital Course: 57 year old Female with PMHx hypertension, migraine headache, fibromyalgia, arthritis and asthma presents to [facility] ED for evaluation of left sided facial numbness,drooling, and posterior headache that started at 3 am this morning. Also reports some weakness of left upper and lower extremity. States she went to bed at 12 midnight with some headache and had no facial numbness or drooling before going to bed. Patient reports her headache was exacerbated by light and noise. Reports she was diagnosed with migraine headache recently by PMD but never seen a neurologist. Patient reports history similar headache and left sided facial numbness in 01/[address] was neg for CVA. Today, in the ED, patient's NIHSS 4, code stroke was activated and neurologist Dr. Irwin was consulted. Head CT and CTA of brain were negative for acute stroke. Also MRI was negative for acute infarct. Dr Irwin assessed pt and consider complicated migraine with Cota's palsy. Patient stable to be discharged home with Rx for prednisone and valacyclovir, instructions to f/u with PCP in 2-3 days. Echo report pending, informed pt will call her when results are available. Discharge Exam - Head Exam Head Exam: NORMAL INSPECTION - Eye Exam Eye Exam: EOMI, PERRL - Respiratory Exam Respiratory Exam: Clear to PA & Lateral, NORMAL BREATHING PATTERN - Cardiovascular Exam Cardiovascular Exam: REGULAR RHYTHM, +S1, +S2. absent: Tachycardia - GI/Abdominal Exam GI & Abdominal Exam: Normal Bowel Sounds, Soft. absent: Distended, Tenderness - Neurological Exam Neurological exam: Alert, CN II-XII Intact, Normal Gait, Oriented x3 - Psychiatric Exam Psychiatric exam: Normal Affect - Skin Skin Exam: Dry, Normal Color, Warm Discharge Plan - Discharge Medications Prescriptions: Prednisone 60 mg PO DAILY #40 tab.ds.pk Valacyclovir HCl [Valacyclovir] 1,000 mg PO Q12H 10 Days #20 tablet - Follow Up Plan Condition: STABLE Disposition: HOSPICE - HOME Instructions: Transient Ischemic Attack, Stroke (DC), Cota's Palsy (DC), Headache, Adult (DC) Additional Instructions: f/u with Dr Velasquez in 2-3 days Start ASA 81 mg daily Return to ER if worsening or new sx Referrals: Edmund Velasquez [Family Provider] - <Tiffanie Estevez - Last Filed: 05/11/18 18:07> Provider - Provider Date of Admission: 05/10/18 17:31 Attending physician: Marissa Mack DO Consults: 05/10/18 22:18 Pastoral Care Referral Routine Comment: Physician Instructions: Reason For Exam: New admission 05/11/18 08:05 Neurology Consult Routine Comment: Consulting Provider: Aurelio Irwin Consulting Physician: Aurelio Irwin Reason for Consult: CVA Hospital Course - Lab Results Lab Results: Most Recent Lab Values WBC 5.3 K/uL (4.8-10.8) 05/11/18 05:30 RBC 3.79 Mil/uL (3.80-5.20) L 05/11/18 05:30 Hgb 12.1 g/dL (12.0-16.0) 05/11/18 05:30 Hct 35.4 % (34.0-47.0) 05/11/18 05:30 MCV 93.4 fl (81.0-99.0) 05/11/18 05:30 MCH 32.0 pg (27.0-31.0) H 05/11/18 05:30 MCHC 34.3 g/dL (33.0-37.0) 05/11/18 05:30 RDW 12.7 % (11.5-14.5) 05/11/18 05:30 Plt Count 219 K/uL (130-400) 05/11/18 05:30 MPV 8.9 fl (7.2-11.7) 05/11/18 05:30 Neut % (Auto) 37.2 % (50.0-75.0) L 05/11/18 05:30 Lymph % (Auto) 50.3 % (20.0-40.0) H 05/11/18 05:30 [place] % (Auto) 8.8 % (0.0-10.0) 05/11/18 05:30 Eos % (Auto) 3.1 % (0.0-4.0) 05/11/18 05:30 Baso % (Auto) 0.6 % (0.0-2.0) 05/11/18 05:30 Neut # (Auto) 2.0 K/uL (1.8-7.0) 05/11/18 05:30 Lymph # (Auto) 2.7 K/uL (1.0-4.3) 05/11/18 05:30 [place] # (Auto) 0.5 K/uL (0.0-0.8) 05/11/18 05:30 Eos # (Auto) 0.2 K/uL (0.0-0.7) 05/11/18 05:30 Baso # (Auto) 0.0 K/uL (0.0-0.2) 05/11/18 05:30 PT 12.1 Seconds (9.8-13.1) 05/10/18 16:00 INR 1.1 05/10/18 16:00 APTT 36.3 Seconds (25.6-37.1) 05/10/18 16:00 Sodium 142 mmol/l (132-148) 05/11/18 05:30 Potassium 4.0 MMOL/L (3.6-5.0) 05/11/18 05:30 Chloride 106 mmol/L (98-107) 05/11/18 05:30 Carbon Dioxide 24 mmol/L (22-30) 05/11/18 05:30 Anion Gap 16 (10-20) 05/11/18 05:30 BUN 15 mg/dl (7-17) 05/11/18 05:30 Creatinine 0.6 mg/dl (0.7-1.2) L 05/11/18 05:30 Est GFR ( Amer) > 60 05/11/18 05:30 Est GFR (Non-Af Amer) > 60 05/11/18 05:30 POC Glucose (mg/dL) 110 mg/dL (65-110) 05/10/18 15:48 Random Glucose 83 mg/dL (65-105) 05/11/18 05:30 Hemoglobin A1c 5.2 % (4.2-6.5) 05/10/18 16:00 Calcium 9.0 mg/dL (8.4-10.2) 05/11/18 05:30 Phosphorus 4.2 mg/dl (2.5-4.5) 05/11/18 05:30 Magnesium 2.0 MG/DL (1.6-2.3) 05/11/18 05:30 Total Bilirubin 0.4 mg/dl (0.2-1.3) 05/11/18 05:30 AST 22 U/L (14-36) 05/11/18 05:30 ALT 32 U/L (9-52) 05/11/18 05:30 Alkaline Phosphatase 78 U/L (38-126) 05/11/18 05:30 Troponin I < 0.0120 ng/mL (0.00-0.120) 05/10/18 16:00 Total Protein 6.3 G/DL (6.3-8.2) 05/11/18 05:30 Albumin 3.3 g/dL (3.5-5.0) L D 05/11/18 05:30 Globulin 3.0 gm/dL (2.2-3.9) 05/11/18 05:30 Albumin/Globulin Ratio 1.1 (1.0-2.1) 05/11/18 05:30 Triglycerides 350 mg/DL (0-149) H 05/10/18 16:00 Cholesterol 174 mg/dL (0-199) 05/10/18 16:00 LDL Cholesterol Direct 77 mg/dL (0-129) 05/10/18 16:00 HDL Cholesterol 49 MG/DL (30-70) 05/10/18 16:00 Vitamin B12 512 pg/mL (239-931) 05/11/18 05:30 TSH 3rd Generation 0.79 mIU/ML (0.46-4.68) 05/11/18 05:30 Blood Type O POSITIVE 05/10/18 16:00 Antibody Screen Negative 05/10/18 16:00 BBK History Checked Patient has bt 05/10/18 16:00 Attending/Attestation - Attestation I have personally seen and examined this patient.: Yes I have fully participated in the care of the patient.: Yes I have reviewed all pertinent clinical information, including history, physical exam and plan: Yes Notes (Text): Acute CVA ruled out [place] Palsy Complex Migraine HTN -MRI of Brain : negative for CVA, CTA and CT of head : Neg - evaluated by Neurology - Dr Irwin - Julius [place] Palsy and Complex Migraine - rec Prednisone and Valcyclovir x 10 days - cont Home med - ff up with Dr Eva patton
--- NOTE | 2018-05-11 18:17 | CARD ---
APPROVED REPORT Date of service: 05/11/2018 EXAM: Two-dimensional and M-mode echocardiogram with Doppler and color Doppler. Other Information Quality : GoodRhythm : NSR INDICATION CVA/TIA 2D DIMENSIONS IVSd0.93 (0.7-1.1cm)LVDd4.25 (3.9-5.9cm) LVOT Diameter1.89 (1.8-2.4cm)PWd0.69 (0.7-1.1cm) IVSs1.09 (0.8-1.2cm)LVDs2.97 (2.5-4.0cm) FS (%) 30.1 %PWs1.25 (0.8-1.2cm) M-Mode DIMENSIONS Left Atrium (MM)3.85 (2.5-4.0cm)IVSd0.76 (0.7-1.1cm) Aortic Root3.03 (2.2-3.7cm)LVDd4.37 (4.0-5.6cm) Aortic Cusp Exc.2.03 (1.5-2.0cm)PWd0.69 (0.7-1.1cm) IVSs1.24 cmFS (%) 41 % LVDs2.58 (2.0-3.8cm)PWs1.29 cm Aortic Valve AoV Peak Txiplxpm569.6cm/sAoV VTI29.6cmAO Peak GR.9mmHg LVOT Peak Rwthwtvg307.8cm/sLVOT VTI24.64cmAO Mean GR.5mmHg TONY (VMAX)1.73ng1JSS (VTI)1.42cm2 Mitral Valve MV E Vtnsidbq97.2cm/sMV DECEL [id number] A Lqurptmd14.5cm/s MV GBL13zyA/A ratio1.0MVA (PHT)4.52cm2 TDI Lateral E' Peak V13.93cm/sMedial E' Peak V9.70cm/sE/Lateral E'4.0 E/Medial E'5.8 Tricuspid Valve TR Peak Seeoyxsk896nn/sRAP CJVJZPBJ26weYtVQ Peak Gr.23mmHg [id number] LEFT VENTRICLE The left ventricle is normal size. There is normal left ventricular wall thickness. The left ventricular systolic function is normal. The estimated ejection fraction is 60-65% No regional wall motion abnormalities noted.. Transmitral Doppler flow pattern is Grade I-abnormal relaxation pattern. No left ventricle thrombus noted on this study. There is no ventricular septal defect visualized. There is no left ventricular aneurysm. There is no mass noted in the left ventricle. RIGHT VENTRICLE The right ventricle is normal size. There is normal right ventricular wall thickness. The right ventricular systolic function is normal. ATRIA The left atrium is mildly dilated. The right atrium size is normal. The interatrial septum is intact with no evidence for an atrial septal defect. AORTIC VALVE The aortic valve is normal in structure. No aortic regurgitation is present. There is no aortic valvular stenosis. There is no aortic valvular vegetation. MITRAL VALVE The mitral valve is normal in structure. There is no evidence of mitral valve prolapse. There is no mitral valve stenosis. There is mild mitral valve regurgitation noted. TRICUSPID VALVE The tricuspid valve is normal in structure. There is mild tricuspid valve regurgitation noted. RVSP is calculated at 28 mm Hg. There is no tricuspid valve prolapse or vegetation. There is no tricuspid valve stenosis. PULMONIC VALVE The pulmonary valve is normal in structure. There is no pulmonic valvular regurgitation. There is no pulmonic valvular stenosis. GREAT VESSELS The aortic root is normal in size. The ascending aorta is normal in size. The pulmonary artery is normal. The IVC is normal in size and collapses >50% with inspiration. PERICARDIAL EFFUSION There is no pericardial effusion. There is no pleural effusion. <Conclusion> The estimated ejection fraction is 60-65% Transmitral Doppler flow pattern is Grade I-abnormal relaxation pattern. The left atrium is mildly dilated. There is mild mitral valve regurgitation noted. There is mild tricuspid valve regurgitation noted. RVSP is calculated at 28 mm Hg.
[2018-05-13] MEDS ORDERED: Ergocalciferol 50,000 Intl Units Cap PO SCH (19:17)
== END 2018-05-11 18:30 | disposition home or self-care (01) ==
LOC: H.ER 15:02 → H.ERHOLD 17:31 → INTOOBSV 17:31 → H.TEL 17:50
PROVIDERS: ADMIT Student in an Organized Health Care Education/Training Program; ATTEND Student in an Organized Health Care Education/Training Program
DX: G51.0 Bell's palsy (principal); E78.5 Hyperlipidemia, unspecified; G43.109 Migraine with aura, not intractable, without status migrainosus; H54.62 Unqualified visual loss, left eye, normal vision right eye; I10 Essential (primary) hypertension; J45.909 Unspecified asthma, uncomplicated; M79.7 Fibromyalgia; M81.0 Age-related osteoporosis without current pathological fracture; Z79.82 Long term (current) use of aspirin; Z90.710 Acquired absence of both cervix and uterus; F32.9 Major depressive disorder, single episode, unspecified; F41.9 Anxiety disorder, unspecified; M19.90 Unspecified osteoarthritis, unspecified site; Z79.899 Other long term (current) drug therapy
CPT/HCPCS: 36415; 70450; 70496; 70553; 71045; 80053; 80061; 82306; 82607; 82746; 82948; 83036; 83735; 84100; 84443; 84484; 85025; 85610; 85730; 86850; 86900; 93005; 93306; 97161; 99285; A9579; G0378; G8978; G8979; J1650; J7030; Q9967

== ENCOUNTER 2018-06-25 21:11 | Emergency (ER) | payer MEDICARE, OTHER ==
[2018-06-25 21:18] VITALS: BMI 26.2
[2018-06-25 22:52] LABS: BASO # 0.1 K/uL (0.0-0.2); BASO % 0.7 % (0.0-2.0); EOS # 0.2 K/uL (0.0-0.7); EOS % 2.1 % (0.0-4.0); HEMOGLOBIN 13.8 g/dL (12.0-16.0); LYMPH # 2.9 K/uL (1.0-4.3); LYMPH % 30.6 % (20.0-40.0); MEAN CELL VOLUME 94.7 fl (81.0-99.0); MEAN CORPUSCULAR HEMOGLOBIN 31.9 pg (27.0-31.0); MEAN CORPUSCULAR HGB CONC 33.7 g/dL (33.0-37.0); MEAN PLATELET VOLUME 8.3 fl (7.2-11.7); MONO # 0.7 K/uL (0.0-0.8); MONO % 7.8 % (0.0-10.0); NEUT # 5.5 K/uL (1.8-7.0); NEUT % 58.8 % (50.0-75.0); NRBC % 0.1 % (0.0-0.0); RBC 4.31 Mil/uL (3.80-5.20); RED CELL DISTRIBUTION WIDTH 13.2 % (11.5-14.5); WHITE BLOOD COUNT 9.4 K/uL (4.8-10.8)
[2018-06-25 22:59] LABS: SQUAMOUS EPITHIAL < 1 /hpf (0-5); URINE BILIRUBIN NEGATIVE (NEGATIVE); URINE BLOOD NEGATIVE (NEGATIVE); URINE CLARITY CLEAR (Clear); URINE COLOR YELLOW (YELLOW); URINE GLUCOSE (UA) NEG (NEGATIVE); URINE LEUKOCYTE ESTERASE NEG Leu/uL (Negative); URINE PROTEIN NEGATIVE (NEGATIVE); URINE UROBILINOGEN 0.2-1.0 mg/dL (0.2-1.0)
[2018-06-25 23:03] LABS: ALB/GLOB RATIO 1.3 (1.0-2.1); ALBUMIN 4.7 g/dL (3.5-5.0); ALT/SGPT 29 U/L (9-52); AST/SGOT 38 U/L (14-36); BLOOD UREA NITROGEN 23 mg/dl (7-17); CALCIUM 9.8 mg/dL (8.4-10.2); GFR NON-AFRICAN AMERICAN > 60
--- NOTE | 2018-06-25 23:52 | ED PDOC ---
HPI: General Adult Time Seen by Provider: 06/25/18 22:02 Chief Complaint (Nursing): Back Pain Chief Complaint (Provider): Shoulder and chest pain History Per: Patient History/Exam Limitations: no limitations Onset/Duration Of Symptoms: Days Additional Complaint(s): 57 yo F with h/o fibromyalgia, osteoarthitis and HTN reports for 1 day of left shoulder pain that now goes across her chest to her right shoulder and arm, right side of neck and head. Pt states she thought it was due to her fibro myalgia, so she has been taking Gabapentin with mild relief. SHe states today the pain to the left shoulder subsided but she has pain to her chest and right arm to the point that she cannot move her right arm due to pain. She reports movement makes it worse. She states she has never had pain this bad before. Pt also reports intermittent difficulty breathing for the last year, which she sees her sleeve machine tender for and was on a blood thinner at one point, but was now taken off of it. Pt denies fever, chill, numbness or tingling, weakness, injuries, leg/calf pain or swelling. (-) diaphoresis, (-) dyspnea, (-) pleuritic component, (-) ripping or tearing quality, (-) positional component, (-) exertional component, (-) dizziness, (-) syncope, (-) nausea, (-) vomiting, (-) calf swelling/pain, (-) neuro deficits. PMD: Edmund Velasquez Professional Model: Benny Baum Neurologist:Ryan Syed Past Medical History Reviewed: Historical Data, Nursing Documentation, Vital Signs Vital Signs: Last Vital Signs Temp 98.5 F 06/25/18 21:18 Pulse 68 06/25/18 21:18 Resp 18 06/25/18 21:18 BP 146/79 06/25/18 21:18 Pulse Ox 99 06/25/18 21:18 Primary Care Provider: Edmund Velasquez - Medical History PMH: Anxiety, Arthritis, Asthma, Depression, Fibromyalgia, Fractures (FOREHEAD AND BRIDGE OF NOSE.), HTN, Migraine, Osteoporosis (OSTEOPENIA) Denies: HIV, Chronic Kidney Disease - Surgical History Surgical History: (x 3) - Family History Family History: States: Unknown Family Hx - Social History Current smoker - smoking cessation education provided: No Alcohol: None Drugs: Denies - Home Medications Home Medications: Ambulatory Orders Medication Instructions Recorded Ergocalciferol (Vitamin D2) 50,000 unit PO MO 05/10/18 [Vitamin D2] Escitalopram [Lexapro] 20 mg PO DAILY 05/10/18 Furosemide [Lasix] 20 mg PO DAILY 05/10/18 Gabapentin [Neurontin] 300 mg PO Q12 05/10/18 Losartan [Cozaar] 25 mg PO DAILY 05/10/18 Meloxicam [Mobic] 7.5 mg PO Q12 PRN 05/10/18 Memantine [Namenda] 10 mg PO Q12 05/10/18 Rosuvastatin Calcium [Crestor] 10 mg PO DAILY 05/10/18 Aspirin [Ecotrin] 81 mg PO DAILY tabec 05/11/18 Prednisone 60 mg PO DAILY #40 tab.ds.pk 05/11/18 Valacyclovir HCl [Valacyclovir] 1,000 mg PO Q12H 10 Days #20 tablet 05/11/18 traMADol [Ultram] 50 mg PO TID PRN #12 tab 06/26/18 - Allergies Allergies/Adverse Reactions: Allergies Allergy/AdvReac Type Severity Reaction Status Date / Time acetaminophen [From Percocet] Allergy SHORTNESS Verified 06/25/18 21:17 OF BREATH oxycodone HCl [From Percocet] Allergy SHORTNESS Verified 06/25/18 21:17 OF BREATH Review of Systems Constitutional: Negative for: Fever Cardiovascular: Positive for: Chest Pain. Negative for: Palpitations, Edema, Light Headedness Respiratory: Negative for: Cough, Shortness of Breath, Hemoptysis, Pleuritic Pain Gastrointestinal: Negative for: Abdominal Pain Musculoskeletal: Positive for: Neck Pain, Shoulder Pain Neurological: Negative for: Weakness, Numbness Physical Exam - Reviewed Nursing Documentation Reviewed: Yes Vital Signs Reviewed: Yes - Physical Exam Comments: GENERALIZED APPEARANCE:Patient is awake, alert, oriented x3 in mild- moderate distress. SKIN: Warm, dry; (-) cyanosis. EYES: (-) conjunctival pallor. ENMT: Mucous membranes moist. NECK: (-) tenderness, (-) stiffness, (-) lymphadenopathy, (-) JVD. (+)FROM CHEST AND RESPIRATORY: (-) rash, (+) chest wall tenderness across top thorax on left and right sides, (-) crepitus Lungs: (-) rales, (-) rhonchi, (-) wheezes, (-) rub; breath sounds equal bilaterally. HEART AND CARDIOVASCULAR: (-) irregularity; (-) murmur, (-) gallop, (-) rub. ABDOMEN AND GI: Soft; (-) distention, (-) tenderness, (-) palpable pulsatile mass. EXTREMITIES: (-) deformity; (-) edema, (-) calf tenderness. (+) distal pulses, capillary refill <2sec, NVI; Upper extremities: (+) tenderness to diffuse shoulders R>L, (+)FROM of LUE, decrease ROM of R shoulder due to pain, n o swelling, erythema, motor and sensation intact NEURO AND PSYCH: Mental status as above. Cranial nerves grossly intact; strength symmetric, motor and sensation intact - Laboratory Results Result Diagrams: 06/25/18 22:49 06/25/18 22:49 Lab Results: Troponin I < 0.0120 ng/mL (0.00-0.120) 06/25/18 22:49 Total Bilirubin 0.4 mg/dl (0.2-1.3) 06/25/18 22:49 AST 38 U/L (14-36) H D 06/25/18 22:49 ALT 29 U/L (9-52) 06/25/18 22:49 Alkaline Phosphatase 96 U/L (38-126) 06/25/18 22:49 Total Protein 8.3 G/DL (6.3-8.2) H 06/25/18 22:49 Albumin 4.7 g/dL (3.5-5.0) 06/25/18 22:49 Globulin 3.6 gm/dL (2.2-3.9) 06/25/18 22:49 Albumin/Globulin Ratio 1.3 (1.0-2.1) 06/25/18 22:49 Urine Color Yellow (YELLOW) 06/25/18 22:49 Urine Clarity Clear (Clear) 06/25/18 22:49 Urine pH 5.0 (5.0-8.0) 06/25/18 22:49 Ur Specific [place] 1.020 (1.003-1.030) 06/25/18 22:49 Urine Protein Negative mg/dL (NEGATIVE) 06/25/18 22:49 Urine Glucose (UA) Neg mg/dL (NEGATIVE) 06/25/18 22:49 Urine Ketones Negative mg/dL (NEGATIVE) 06/25/18 22:49 Urine Blood Negative (NEGATIVE) 06/25/18 22:49 Urine Nitrate Negative (NEGATIVE) 06/25/18 22:49 Urine Bilirubin Negative (NEGATIVE) 06/25/18 22:49 Urine Urobilinogen 0.2-1.0 mg/dL (0.2-1.0) 06/25/18 22:49 Ur Leukocyte Esterase Neg [place]/uL (Negative) 06/25/18 22:49 Urine RBC (Auto) 3 /hpf (0-3) 06/25/18 22:49 Urine Microscopic WBC 1 /hpf (0-5) 06/25/18 22:49 Ur Squamous Epith Cells < 1 /hpf (0-5) 06/25/18 22:49 - ECG ECG: Positive for: Interpreted By Me ECG Rhythm: Positive for: Normal QRS, Sinus Rhythm (65). Negative for: ST/T Changes (no changes compared to 05/10/2018) O2 Sat by Pulse Oximetry: 99 - Radiology X-Ray: Interpreted by Me X-Ray Interpretation: No Acute Disease Medical Decision Making Medical Decision Makin:10 chest and shoulder pain, likely muscular related pain or fibromyalgia, will do chest pain work up to ensure no cardiac issue --EKG --CXR -- labs, troponin -- UA -Toradol IV -- re eval 23:30 XRs reviewed by me, no active disease in CXR, shoulder no fractures or dislocations informed pt she will be contacted if any discrepancies with radiology read 23: 45 on re eval pt reports pain is improved went from 12/05 to 08/05, continues with pain with movement though it is much improved, just decrease flexion and abduction of right sholder to 90 degrees, will give Tramadol PO [place] [employer] Rx search shows only Rx for Gabapentin last filled on 04/11/2018 for 90 day supply 00:10 on re eval pt reports continued improvement, continues with reproducible pain to shoulders pain for >24 hours, EKG shows no acute changes, trop is neg, CXR clear, labs otherwise unremarkable, pt is stable for dc Discussed results, diagnosis, treatment, return precautions and f/u with pt who is understanding, in agreement and stable for dc Disposition - Clinical Impression Clinical Impression: Shoulder pain, right, Chest pain - Patient ED Disposition Is Patient to be Admitted: No Counseled Patient/Family Regarding: Studies Performed, Diagnosis, Need For Followup, Rx Given - Disposition Referrals: Edmund Velasquez [Staff Provider] - Disposition: Routine/Home Disposition Time: 00:10 Condition: IMPROVED Additional Instructions: Thank you for letting us take care of you today. Return to ED for new or worsening symptoms, fever >100.4, numbness or tingling, changes in skin color, difficulty breathing, headache, lightheaded. FOllow up with your doctor as soon as possible. Take medications as prescribed previously. Take tramadol as prescribed today for worsening pain, do not drive or drink alcohol when taking. The emergency medical care you received today was directed at your acute symptoms. If you were prescribed any medication, please fill it and take as directed. It may take several days for your symptoms to resolve. Return to the Emergency Department if your symptoms worsen, do not improve, or if you have any other problems. Please contact your doctor in 2 days for re-evaluation and follow up / or call one of the physicians/clinics you have been referred to that are listed on the Patient Visit Information form that is included in your discharge packet. Bring any paperwork you were given at discharge with you along with any medications you are taking to your follow up visit. Our treatment cannot replace ongoing medical care by a primary care provider (PCP) outside of the emergency department. Prescriptions: traMADol [Ultram] 50 mg PO TID PRN #12 tab PRN Reason: Pain, Severe (8-10) Instructions: Chest Pain, Shoulder Pain (DC) Forms: SNADEC (Hebrew) Print Language: ALBANIAN - POA Present On Arrival: None
[2018-06-25 23:56] VITALS: BP 138/82; PULSE 72; RESP 16; TEMP 98.2
[2018-06-25 23:57] VITALS: O2SAT 99
--- NOTE | 2018-06-26 07:59 | RAD ---
Date of service: 06/25/2018 HISTORY: chest pain COMPARISON: 05/10/2018 TECHNIQUE: Chest PA and lateral views FINDINGS: LUNGS: No active pulmonary disease. PLEURA: No significant pleural effusion identified. No pneumothorax apparent. CARDIOVASCULAR: No aortic atherosclerotic calcification present. Normal cardiac size. No pulmonary vascular congestion. OSSEOUS STRUCTURES: No significant abnormalities. VISUALIZED UPPER ABDOMEN: Normal. OTHER FINDINGS: None. IMPRESSION: No active disease. No interval pathology noted.
--- NOTE | 2018-06-26 08:00 | RAD ---
Date of service: 06/25/2018 PROCEDURE: Radiographs of the Right Shoulder HISTORY: pain COMPARISON: 06/09/2017 TECHNIQUE: 3 views obtained. FINDINGS: BONES: Normal. No fracture. JOINTS: . Glenohumeral minimal arthrosis and acromioclavicular joints mild-moderate arthrosis osteoarthritis. SOFT TISSUES: Normal. OTHER FINDINGS: None. IMPRESSION: No fracture or lytic lesion. Minimal to mild right shoulder arthrosis.
--- NOTE | 2018-06-26 10:23 | CARD ---
APPROVED REPORT Date of service: 06/25/2018 EKG Measurement Heart [id number] <Conclusion> Normal sinus rhythm Normal Electrocardiogram
== END 2018-06-26 00:13 | disposition home or self-care (01) ==
LOC: H.ER 21:11
DX: I10 Essential (primary) hypertension (principal); J45.909 Unspecified asthma, uncomplicated; Z79.82 Long term (current) use of aspirin; Z88.5 Allergy status to narcotic agent; M81.0 Age-related osteoporosis without current pathological fracture; Z86.59 Personal history of other mental and behavioral disorders; M79.7 Fibromyalgia
CPT/HCPCS: 71046; 73030; 80053; 81003; 84484; 85025; 93005; 96374; 99281; J1885